=== PATIENT | female | born 1950 | race Caucasian/White ===

== ENCOUNTER 2019-12-08 08:33 | Outpatient (REF) | payer MEDICARE, OTHER, SELFPAY ==
[2019-12-08 09:41] LABS: MANUAL DIFF FLAG NO
[2019-12-08 09:53] LABS: Basophils Percent Auto 0.4 % (0-2); Eosinophils Absolute Auto 0.1 X10*3/uL (0.0-0.4); Eosinophils Percent Auto 1.6 % (0-4); Hematocrit 42.5 % (37-47); Hemoglobin 13.9 g/dl (12.0-16.0); Imm Gran Abs Auto 0.01 X10*3/uL (0.00-0.03); Imm Gran Pct Auto 0.2 % (0.0-0.4); Lymphocytes Absolute Auto 1.4 X10*3/uL (1.2-4.9); Lymphocytes Percent Auto 24.9 % (20-40); Mean Corpuscular HGB Conc 32.7 g/dl (31.0-35.0); Mean Corpuscular Hemoglobin 30.2 pg (27.0-33.0); Mean Corpuscular Volume 92.2 fL (80-98); Mean Platelet Volume 9.9 fL (9.4-12.3); Monocytes Absolute Auto 0.6 X10*3/uL (0.1-1.2); Neutrophils Absolute Auto 3.6 X10*3/uL (2.0-8.3); Neutrophils Percent Auto 62.9 % (45-73); Platelet Count 313 X10*3/uL (160-400); Red Blood Count 4.61 X10*6/uL (4.20-5.50); Red Cell Distribution Width 13.2 % (11.0-16.0); White Blood Count 5.7 X10*3/uL (4.8-10.8)
[2019-12-08 10:16] LABS: Glucose Urine UA NEG (NEG); Leukocyte Esterase Urine NEG (NEG); Nitrite Urine NEG (NEG); PH 7.5 (5.0-8.0); Specific Gravity - Urine 1.015 (1.005-1.025); Urine Blood TRACE (NEG); Urine Ketones NEG (NEG); Urine Protein NEG (NEG-TRACE)
[2019-12-08 10:18] LABS: Alanine Aminotransferase 22 U/L (0-31); Albumin Level 4.4 g/dL (3.5-5.0); Alkaline Phosphatase 68 U/L (39-117); Anion Gap 16 (12-20); Aspartate Amino Transferase 26 U/L (5-31); Bilirubin Total 0.5 mg/dL (0.0-1.0); Blood Urea Nitrogen 20 mg/dL (9-16); Calcium 9.2 mg/dL (8.4-10.2); Carbon Dioxide 26 mmol/L (22-29); Chloride 100 mmol/L (96-108); Cholesterol 253 mg/dL; Estimated Glomerular Filt Rate > 60; Glucose Random 84 mg/dL (60-115); HDL Cholesterol 98 mg/dL; LDL Cholesterol Calculated 136 mg/dl; Potassium 4.5 mmol/l (3.3-5.1); Sodium 137 mmol/L (135-145); Total Protein 7.5 g/dL (6.5-8.0); Triglycerides 96 mg/dL
[2019-12-08 10:21] LABS: Appearance Urine CLEAR; Color Urine YELLOW
[2019-12-08 11:16] LABS: RBC Urine 0-2 /HPF (0); Squamous Epithelial Cell Urine TRACE /LPF; WBC Urine 0-2 /HPF (0-4)
== END 2019-12-08 08:34 | disposition home or self-care (01) ==
LOC: HO.LAB 08:33
PROVIDERS: PCP Internal Medicine; Visit Provider Internal Medicine
DX: Z00.00 Encounter for general adult medical examination without abnormal findings (principal); I10 Essential (primary) hypertension
CPT/HCPCS: 36415; 80053; 80061; 81001; 81003; 85025

== ENCOUNTER 2019-12-31 09:27 | Outpatient (REF) | payer MEDICARE, OTHER, SELFPAY ==
[2019-12-31 11:30] LABS: Vitamin D 25-OH Total 41.8 ng/mL (>30)
== END 2019-12-31 09:28 | disposition home or self-care (01) ==
LOC: HO.LAB 09:27
PROVIDERS: PCP Internal Medicine; Visit Provider Internal Medicine
DX: E55.9 Vitamin D deficiency, unspecified (principal)
CPT/HCPCS: 82306

== ENCOUNTER 2020-09-02 12:57 | Outpatient (REF) | payer MEDICARE, OTHER, SELFPAY ==
--- NOTE | ~2020-09-02 | MM_ITS ---
EXAMINATION: MM SCREENING DIGITAL BREAST TOMOSYNTHESIS, BILATERAL CLINICAL INFORMATION: Screening. Asymptomatic. The lifetime risk of breast cancer based on the Tyrer-Cuzick Model is 6%. COMPARISON: Mammography: 08/29/2019, 08/23/2018, 08/17/2017, 08/03/2016 TECHNIQUE: Digital breast tomosynthesis is performed in both the craniocaudal and mediolateral oblique views along with computer-aided detection (CAD). Synthesized 2D images are generated from the tomosynthesis. FINDINGS: There are scattered areas of fibroglandular density (ACR BI-RADS breast composition Category b). Parenchymal pattern is similar to prior studies. There is no developing density or interval mass or architectural abnormality. No abnormal calcifications. The axilla and skin contours are unremarkable. MM/MM tomosynthesis screening BI IMPRESSION: No mammographic evidence of malignancy. ASSESSMENT: BI-RADS 1: Negative RECOMMENDATION: Routine annual mammography screening. This patient's information was entered into a reminder system with a target due date for their next mammogram.
== END 2020-09-02 12:58 | disposition home or self-care (01) ==
LOC: HO.MAMMO 12:57
PROVIDERS: Visit Provider Internal Medicine
DX: Z12.31 Encounter for screening mammogram for malignant neoplasm of breast (principal)
CPT/HCPCS: 77063; 77067

== ENCOUNTER 2020-12-31 10:42 | Outpatient (REF) | payer MEDICARE, OTHER, SELFPAY ==
--- NOTE | ~2020-12-31 | MM_ITS ---
EXAMINATION: BONE DENSITOMETRY CLINICAL INDICATION: Age-related osteoporosis without current pathological fracture. COMPARISON: Previous BD dated 10/10/2018 and baseline BD dated 10/05/2016. TECHNIQUE: Using a Strawberry energy DXA System (software version: 13.1) manufactured by [employer], dual-energy x-ray absorptiometry was performed of the lumbar spine and left hip. The images are of good technical quality. Summary results are attached. FINDINGS: AP SPINE L1-L3 (excluding L4): The data of L1-L4 has been changed to exclude the L4 vertebral body, because degenerative changes at this level may cause overestimation of lumbar spine density. Current: BMD 0.928 g/cm2, Z-score 0.0, T-score -2.0, osteopenia, 2.8% decrease from previous, 4.6% decrease from baseline (<5% change is not significant). Prior: BMD 0.955 g/cm2. Baseline: BMD 0.973 g/cm2. LEFT FEMUR, NECK: Current: BMD 0.603 g/cm2, Z-score -1.2, T-score -3.1, osteoporosis. Prior: BMD 0.664 g/cm2. Baseline: BMD 0.675 g/cm2. LEFT FEMUR, TOTAL: Current: BMD 0.603 g/cm2, Z-score -1.5, T-score -3.2, osteoporosis, 13.7% decrease from previous, 12.5% decrease from baseline (<5% change is not significant). Prior: BMD 0.699 g/cm2. Baseline: BMD 0.689 g/cm2. IDENTIFIED RISK FACTORS: Osteoporosis, menopause. HISTORY OF FRACTURE: None listed. MEDICATIONS: Calcium or multivitamin. MM/XR DEXA axial skeleton IMPRESSION: 1. DIAGNOSIS: Osteoporosis based on the lowest T-score value of -3.2 in the total femur applying World Health Organization criteria. 2. 10-YEAR FRACTURE RISK PREDICTION, FRAX: According to the guidelines, FRAX calculation should only be performed on patients in the osteopenia bone density category. 3. Treatment Recommendations: NOF guidelines recommend consideration for treatment in postmenopausal women and men age 50 and older presenting with the following: -A hip or vertebral (clinical or morphometric) fracture. -T-score less than or equal to -2.5 at the femoral neck or spine after appropriate evaluation to exclude secondary causes. -Low bone mass at the hip or spine and a 10-year fracture probability by FRAX of greater than or equal to 3% for hip fracture or greater than or equal to 20% for major osteoporotic fracture based on the [place] adapted WHO algorithm. 4. Other Recommendations: All treatment decisions require clinical judgment and consideration of individual patient factors, including patient preferences, comorbidities, previous drug use, risk factors not captured in the FRAX model (e.g. frailty, falls, vitamin D deficiency, increased bone turnover, interval significant decline in bone density) and possible under or overestimation of fracture risk by FRAX. Additional medical evaluation for secondary cause of low bone mineral density may be appropriate. FUTURE SCAN RECOMMENDATION: People with diagnosed cases of osteoporosis or at high risk for fracture should have regular bone mineral density tests. For patients eligible for Medicare, routine testing is allowed once every 2 years. The testing frequency can be increased to one year for patients who have rapidly progressing disease, those who are receiving or discontinuing medical therapy to restore bone mass, or have additional risk factors.
== END 2020-12-31 10:43 | disposition home or self-care (01) ==
LOC: HO.MAMMO 10:42
PROVIDERS: Visit Provider Internal Medicine
DX: Z13.820 Encounter for screening for osteoporosis (principal); M81.0 Age-related osteoporosis without current pathological fracture; Z78.0 Asymptomatic menopausal state; Z79.899 Other long term (current) drug therapy
CPT/HCPCS: 77080

== ENCOUNTER 2021-01-19 09:07 | Outpatient (REF) | payer MEDICARE, OTHER, SELFPAY ==
[2021-01-19 11:21] LABS: Alanine Aminotransferase 21 U/L (0-31); Albumin Level 4.1 g/dL (3.5-5.0); Alkaline Phosphatase 76 U/L (39-117); Anion Gap 13 (12-20); Aspartate Amino Transferase 23 U/L (5-31); Bilirubin Total 0.5 mg/dL (0.0-1.0); Blood Urea Nitrogen 27 mg/dL (9-16); Carbon Dioxide 28 mmol/L (22-29); Chloride 102 mmol/L (96-108); Estimated Glomerular Filt Rate > 60; Glucose Random 84 mg/dL (60-115); Phosphorus 3.9 mg/dL (2.7-4.5); Potassium 4.4 mmol/L (3.3-5.1); Sodium 139 mmol/L (135-145); Total Protein 7.4 g/dL (6.5-8.0)
[2021-01-19 11:41] LABS: Free T4 (Free Thyroxine) 1.03 ng/dL (0.71-1.85); Thyroid Stimulating Hormone 1.49 uIU/mL (0.32-4.0); Vitamin D 25-OH Total 38.9 ng/mL (>30)
[2021-01-20 10:21] LABS: Calcium (PTHI) 9.6 mg/dL (8.6-10.4); PTHI 22 pg/mL (14-64)
[2021-01-21 12:21] LABS: Prot Elec - Alpha1 0.3 g/dL (0.2-0.3); Prot Elec - Alpha2 0.9 g/dL (0.5-0.9); Prot Elec - Beta 1 0.5 g/dL (0.4-0.6); Prot Elec - Beta 2 0.5 g/dL (0.2-0.5); Prot Elec - Gamma 1.1 g/dL (0.8-1.7); Prot Elec - Total Protein 7.2 g/dL (6.1-8.1)
[2021-01-21 14:35] LABS: Calcium, Ionized 5.1 mg/dL (4.8-5.6)
== END 2021-01-19 09:08 | disposition home or self-care (01) ==
LOC: HO.LAB 09:07
PROVIDERS: PCP Internal Medicine; Visit Provider Internal Medicine
DX: M81.0 Age-related osteoporosis without current pathological fracture (principal); E55.9 Vitamin D deficiency, unspecified; E04.9 Nontoxic goiter, unspecified
CPT/HCPCS: 36415; 80053; 82306; 82330; 83970; 84075; 84100; 84165; 84439; 84443; 99212

== ENCOUNTER 2021-01-27 11:42 | Outpatient (REF) | payer MEDICARE, OTHER, SELFPAY ==
[2021-01-27 12:32] LABS: Total Volume 24 Hour Urine 2300 mL
[2021-01-27 12:38] LABS: Creatinine, 24Hr Urine 0.9 G/Day (1.0-2.0)
[2021-01-29 17:06] LABS: Calcium, 24 Hr Urine 186 mg/24 h; Calcium/Creatinine Ratio 208 mg/g creat (30-275)
== END 2021-01-27 11:43 | disposition home or self-care (01) ==
LOC: HO.LNP 11:42
PROVIDERS: Visit Provider Internal Medicine
DX: Z13.89 Encounter for screening for other disorder (principal)
CPT/HCPCS: 82340; 82570

== ENCOUNTER 2021-01-27 16:29 | Outpatient (REF) | payer MEDICARE, OTHER, SELFPAY ==
[2021-01-27 16:41] LABS: MANUAL DIFF FLAG NO
[2021-01-27 16:56] LABS: Basophils Percent Auto 0.4 % (0-2); Eosinophils Absolute Auto 0.1 X10*3/uL (0.0-0.4); Eosinophils Percent Auto 1.4 % (0-4); Hematocrit 40.6 % (37.0-47.0); Hemoglobin 13.1 g/dl (12.0-16.0); Imm Gran Abs Auto 0.02 X10*3/uL (0.00-0.03); Imm Gran Pct Auto 0.4 % (0.0-0.4); Lymphocytes Absolute Auto 1.4 X10*3/uL (1.2-4.9); Lymphocytes Percent Auto 25.4 % (20-40); Mean Corpuscular HGB Conc 32.3 g/dl (31.0-35.0); Mean Corpuscular Volume 92.9 fL (80.0-98.0); Mean Platelet Volume 9.1 fL (9.4-12.3); Monocytes Absolute Auto 0.5 X10*3/uL (0.1-1.2); Monocytes Percent Auto 9.5 % (2-11); Neutrophils Absolute Auto 3.6 x10*3/uL (2.0-8.3); Neutrophils Percent Auto 62.9 % (45-73); Platelet Count 315 X10*3/uL (160-400); Red Blood Count 4.37 X10*6/uL (4.20-5.50); Red Cell Distribution Width 13.5 % (11.0-16.0); White Blood Count 5.7 X10*3/uL (4.8-10.8)
[2021-01-27 17:12] LABS: Alanine Aminotransferase 20 U/L (0-31); Albumin Level 4.1 g/dL (3.5-5.0); Alkaline Phosphatase 84 U/L (39-117); Anion Gap 13 (12-20); Aspartate Amino Transferase 22 U/L (5-31); Bilirubin Total 0.2 mg/dL (0.0-1.0); Blood Urea Nitrogen 24 mg/dL (9-16); Calcium 9.5 mg/dL (8.4-10.2); Carbon Dioxide 29 mmol/L (22-29); Chloride 103 mmol/L (96-108); Estimated Glomerular Filt Rate > 60; Glucose Random 89 mg/dL (60-115); Potassium 4.5 mmol/L (3.3-5.1); Sodium 140 mmol/L (135-145); Total Protein 7.3 g/dL (6.5-8.0)
== END 2021-01-27 16:30 | disposition home or self-care (01) ==
LOC: HO.LAB 16:29
PROVIDERS: PCP Internal Medicine; Visit Provider Nurse Practitioner
DX: R19.5 Other fecal abnormalities (principal)
CPT/HCPCS: 36415; 80053; 82340; 82570; 85025; 99202

== ENCOUNTER 2021-02-09 09:02 | Outpatient (REF) | payer MEDICARE, OTHER, SELFPAY ==
[2021-02-09 09:27] LABS: MANUAL DIFF FLAG NO
[2021-02-09 09:46] LABS: Basophils Percent Auto 0.6 % (0-2); Eosinophils Absolute Auto 0.1 X10*3/uL (0.0-0.4); Eosinophils Percent Auto 1.8 % (0-4); Hematocrit 41.9 % (37.0-47.0); Hemoglobin 13.6 g/dl (12.0-16.0); Imm Gran Abs Auto 0.02 X10*3/uL (0.00-0.03); Imm Gran Pct Auto 0.4 % (0.0-0.4); Lymphocytes Absolute Auto 1.4 X10*3/uL (1.2-4.9); Mean Corpuscular HGB Conc 32.5 g/dl (31.0-35.0); Mean Corpuscular Hemoglobin 29.8 pg (27.0-33.0); Mean Corpuscular Volume 91.9 fL (80.0-98.0); Mean Platelet Volume 8.9 fL (9.4-12.3); Monocytes Absolute Auto 0.5 X10*3/uL (0.1-1.2); Monocytes Percent Auto 10.7 % (2-11); Neutrophils Absolute Auto 2.9 x10*3/uL (2.0-8.3); Neutrophils Percent Auto 57.5 % (45-73); Platelet Count 334 X10*3/uL (160-400); Red Blood Count 4.56 X10*6/uL (4.20-5.50); Red Cell Distribution Width 13.4 % (11.0-16.0)
[2021-02-09 10:05] LABS: Alanine Aminotransferase 24 U/L (0-31); Albumin Level 4.4 g/dL (3.5-5.0); Alkaline Phosphatase 79 U/L (39-117); Anion Gap 13 (12-20); Aspartate Amino Transferase 23 U/L (5-31); Bilirubin Total 0.5 mg/dL (0.0-1.0); Blood Urea Nitrogen 22 mg/dL (9-16); Carbon Dioxide 29 mmol/L (22-29); Chloride 101 mmol/L (96-108); Cholesterol 250 mg/dL; Estimated Glomerular Filt Rate > 60; Glucose Fasting 85 mg/dL (60-99); HDL Cholesterol 91 mg/dL; LDL Cholesterol Calculated 143 mg/dl; Sodium 139 mmol/L (135-145); Total Protein 7.7 g/dL (6.5-8.0); Triglycerides 82 mg/dL
[2021-02-09 10:27] LABS: Vitamin D 25-OH Total 39.4 ng/mL (>30)
[2021-02-09 10:58] LABS: Appearance Urine CLEAR; Color Urine YELLOW; Glucose Urine UA NEG (NEG); Leukocyte Esterase Urine 1+ (NEG); Nitrite Urine NEG (NEG); Urine Blood TRACE (NEG); Urine Ketones NEG (NEG); Urine Protein NEG (NEG-TRACE)
[2021-02-09 11:06] LABS: RBC Urine 0-2 /HPF (0)
== END 2021-02-09 09:03 | disposition home or self-care (01) ==
LOC: HO.LAB 09:02
PROVIDERS: PCP Internal Medicine; Visit Provider Internal Medicine
DX: I10 Essential (primary) hypertension (principal); E55.9 Vitamin D deficiency, unspecified
CPT/HCPCS: 36415; 80053; 80061; 81001; 82306; 85025

== ENCOUNTER 2021-03-15 12:04 | Outpatient (REF) | payer MEDICARE, OTHER, SELFPAY ==
--- NOTE | ~2021-03-15 | US_ITS ---
EXAMINATION: US THYROID CLINICAL INFORMATION: Nontoxic goiter, unspecified COMPARISON: None TECHNIQUE: Linear transducer ram-scale and color Doppler examination with attention to the region of the thyroid. FINDINGS: SIZE: Measurements of the thyroid lobes and nodules are given in sagittal, anteroposterior and transverse dimensions respectively. Right Thyroid Lobe: 4.9 x 0.8 x 2.3 cm, volume 4.7 mL. Parenchyma: The gland echotexture is homogeneous. Thyroid vascularity is normal. Left Thyroid Lobe: 4.5 x 1.1 x 1.8 cm, volume 4.7 mL. Parenchyma: The gland echotexture is homogeneous. Thyroid vascularity is normal. Isthmus: 0.22 cm in maximum AP dimension. Estimated total number of nodules greater than or equal to 1 cm: 0. Manufacturing Worker nodules are described as follows: 1. Location: Right mid. Size: 0.29 x 0.16 x 0.23 cm, volume 0.006 mL. Nodule characteristics: Composition: Solid/almost completely solid (2). Echogenicity: Hypoechoic (2). Shape: Not taller than wide (0). Margins: Smooth (0). Echogenic Foci: None (0). ACR TI-RADS total points: 4 ACR TI-RADS category: 4 2. Location: Isthmus. Size: 0.23 x 0.19 x 0.21 cm, volume 0.005 mL. Nodule characteristics: Composition: Solid/almost completely solid (2). Echogenicity: Hypoechoic (2). Shape: Not taller than wide (0). Margins: Smooth (0). Echogenic Foci: None (0). ACR TI-RADS total points: 4 ACR TI-RADS category: 4 NODES: No lymphadenopathy is seen in the tissue surrounding the thyroid gland. US/US thyroid IMPRESSION: Normal size thyroid gland. Small bilateral thyroid nodules. ACR TI-RADS RECOMMENDATION REFERENCE: Ultrasound-guided fine-needle aspiration, followup ultrasound, no further follow up. * TR1 (0 point) and TR 2 (2 points): No FNA or follow up * TR3 (3 points): FNA if more than or equal to 2.5 cm in maximum dimension, followup ultrasound in 1, 3 and 5 years if 1.5 to 2.4 cm in maximum dimension. * TR4 (4-6 points): FNA if more than or equal to 1.5 cm in maximum dimension, followup ultrasound in 1, 2, 3 and 5 years if 1 to 1.4 cm in maximum dimension. * TR5 (more than or equal to 7 points): FNA if more than or equal to 1 cm in maximum dimension, followup ultrasound every year for 5 years if 0.5 to 0.9 cm in maximum dimension. * TR3, TR4 or TR5 nodules that are below the size threshold for follow up receive no follow up.
== END 2021-03-15 12:05 | disposition home or self-care (01) ==
LOC: HO.US 12:04
PROVIDERS: PCP Internal Medicine; Visit Provider Internal Medicine
DX: E04.9 Nontoxic goiter, unspecified (principal)
CPT/HCPCS: 76536

== ENCOUNTER 2021-04-12 08:59 | Day surgery (SDC) | payer MEDICARE, OTHER, SELFPAY ==
[2021-04-05 19:11] VITALS: BMI 20.5
--- NOTE | 2021-04-11 12:10 | HO.ANESPROP2 ---
HPI - Anesthesia Eval Consult details Narrative: 70yo F for Colonoscopy PMFSH Active Problems Active Problems: All Active Problems (Updated 01/27/21 @ 16:27 by ANAI Parikh) Positive colorectal cancer screening using Cologuard test (Acute) Irritable bowel syndrome with diarrhea (Acute) Nephrolithiasis (Acute) Hypertension (Acute) Goiter (Acute) Vitamin D deficiency (Acute) Osteoporosis (Acute) Past Medical History Medical History Goiter Osteoporosis Vitamin D deficiency Family History Family History Father Stomach cancer Mother Breast cancer Surgical History Surgical History Hx of section Hx of colonoscopy Social History Social History Alcohol intake: never Patient Tobacco Use Status: Never used Tobacco Meds Allergies Allergy/AdvReac Type Severity Reaction Status Date / Time No Known Allergies Allergy Verified 01/27/21 15:46 Home Medications Medication Instructions Recorded Confirmed Last Taken Type calcium citrate 200 mg (950 mg) 200 mg PO DAILY 01/19/21 04/05/21 Unknown History tablet Exam Exam Date and Time: April 11, 2021 1210 Height,Weight and Vital Signs: Height 5 ft 4 in Weight 54.431 kg Pertinent Lab Results Pertinent Lab Results: Laboratory Tests 02/09/21 02/09/21 09:26 09:26 WBC 5.0 Hgb 13.6 Hct 41.9 Plt Count 334 Sodium 139 Potassium 4.0 Chloride 101 Carbon Dioxide 29 BUN 22 H Creatinine 0.81 Assessment and Plan Assessment Anesthesia Assessment: Chart Reviewed
[2021-04-12 09:16] VITALS: BP 164/89; PULSE 93; RESP 17; TEMP 36.5; O2SAT 100; BMI 20.7
[2021-04-12] MEDS: Lactated Ringers 1,000 ML 100 ML IVCONT (09:44)
--- NOTE | 2021-04-12 10:06 | MHC.SHP ---
Pre-Procedural Eval Section A Date of Service: 04/12/21 The patient is an INPATIENT: No The History & Physical has been completed within 30 days and I have reviewed it.: No Section B Chief Complaint: Other fecal abnormalities Details of Present Illness: Colon cancer screening, positive Cologuard test Relevant Family History (Specify if Yes): Yes Relevant Social History: None Present Medications: see Short Stay Collaborative assessment Medical History: Significant History (Goiter Osteoporosis Vitamin D deficiency) History of Previous Operations: Relevant previous surgery/procedure and date(s) (History of colonoscopy, status post ) Allergies: Allergies Allergy/AdvReac Type Severity Reaction Status Date / Time No Known Allergies Allergy Verified 01/27/21 15:46 Review of Systems Sugical H&P ROS: Negative: Constitution, Cardiovascular, Respiratory and Gastrointestinal Exam Surgical H&P Exam: Normal: Heart, Normal: Lungs, Normal: Extremities and Normal: Abdomen Plan Diagnosis/Plan: Unchanged I have reviewed the history and physical and performed a pertinent physical examination on my patient. No changes have occurred unless specified.
--- NOTE | 2021-04-12 10:07 | P.OP_ITS ---
Operative Note Operative Note Date of Service: 04/12/21 Narrative: Pre-op diagnosis: Colon cancer screening, positive Cologuard test Post-op diagnosis:?other (Colon polyps, diverticulosis) Procedure: COLONOSCOPY TILL CECUM WITH BIOPSIES, SNARE POLYPECTOMY, SUBMUCOSAL INJECTION Consent: Indications for the procedure and potential complications of bleeding, perforation, reaction to medications and missed diagnosis were discussed with the patient and informed consent was obtained. Instrument: Olympus PCF H 190 L variable stiffness pediatric colonoscope Monitoring: Vital signs and clinical assessment, intermittent blood pressure monitoring, continuous EKG monitoring, Pulse oximetry and Carbon Dioxide monitoring were done throughout the procedure. Colon withdrawl time was 25 minutes. Procedure: The patient was placed in the left lateral decubitis position and pre-procedure medications were administered. After a digital rectal examination of the ano-rectum, the video colonoscope was inserted into the rectum and advanced through the colon to the cecum. The colonoscope was slowly withdrawn in a retrograde panoramic fashion and the colon mucosa was carefully examined including a retroflexed view of the rectum. Findings and interventions are described below. Procedure Difficulty:? Colon was long and tortuous and there was some loop formation Findings: Terminal Ileum: Not evaluated Cecum:? Normal Ascending Colon:? A 5-6 mm sessile polyp in the distal ascending colon removed with a cold biopsy Transverse Colon:? A 2.5 cms flat polyp at 65 cm raised with 3 cc of Orise solution and removed with a hot snare.? Polypectomy site was marked with Sarina ink.? A 12-15 mm flat polyp in the distal transverse colon raised with 2 cc of Orise solution and removed with a hot snare. Descending Colon:? Normal Sigmoid Colon:? A 4-5 mm diminutive appearing polyp removed with the cold biopsy.? Moderate diverticulosis Rectum:? Normal Ano-rectum:? Normal Colon preparation: Excellent ? Impression and Post Procedure Diagnosis: Colonoscopy Findings: Two small and two medium to large sized polyps removed Moderate diverticulosis seen in the sigmoid colon Moderate hemorrhoids on retroflexed exam. Plan: Await pathology results Patient has an appointment on 04/26/21 in the GI Clinic with ESTUARDO Doe . Repeat Colonoscopy interval based on path results - in 1 year if polyps are adenomatous (to check polypectomy site at 65 cms) and 10 years if polyps are hyperplastic. Above findings were reviewed with the patient and [colon polyps] and [diverticulosis] handouts were given in the discharge area Surgeon: Jaki Carson MD Anesthesia:?MAC (Dr Gamino) Was an Hedge Fund Accountant used for this Procedure?:?Yes Hedge Fund Accountant:?Thuy De Anda Estimated blood loss (mL):?0 Pathology:?other (A. ascending colon polyp? B. transv erse colon polyp at 65 cm with Orise? C. distal transverse colon polyp with Orise? D. sigmoid colon polyp) Condition:?stable Disposition:?PACU
[2021-04-12 11:10] VITALS: BP 154/56; PULSE 84; RESP 20; TEMP 36.7; O2SAT 98
== END 2021-04-12 11:27 | disposition home or self-care (01) ==
PROVIDERS: PCP Internal Medicine; Visit Provider Internal Medicine Gastroenterology
PROC: 0DJD8ZZ Inspection of Lower Intestinal Tract, Via Natural or Artificial Opening Endoscopic (ICD-10-PCS; CPT 45378; principal; 2021-04-12 10:10)
DX: R19.5 Other fecal abnormalities (principal); D12.2 Benign neoplasm of ascending colon; D12.3 Benign neoplasm of transverse colon; K63.5 Polyp of colon; K57.30 Diverticulosis of large intestine without perforation or abscess without bleeding; Z80.0 Family history of malignant neoplasm of digestive organs; E55.9 Vitamin D deficiency, unspecified; M81.0 Age-related osteoporosis without current pathological fracture
CPT/HCPCS: 45385; 45380; 45381; 88305

== ENCOUNTER → 2021-04-26 10:57 | Outpatient (BNVA) | payer MEDICARE, OTHER, SELFPAY | PROVIDERS: PCP Internal Medicine; Visit Provider Physician Assistant | DX: D12.6 Benign neoplasm of colon, unspecified (principal) | CPT/HCPCS: 99212 ==

== ENCOUNTER → 2021-07-18 09:57 | Outpatient (BNVA) | payer MEDICARE, OTHER, SELFPAY | PROVIDERS: PCP Internal Medicine; Visit Provider Internal Medicine | DX: M81.0 Age-related osteoporosis without current pathological fracture (principal); E55.9 Vitamin D deficiency, unspecified; E04.9 Nontoxic goiter, unspecified | CPT/HCPCS: Q3014 ==

== ENCOUNTER 2021-09-08 15:02 | Outpatient (REF) | payer MEDICARE, OTHER, SELFPAY ==
--- NOTE | ~2021-09-08 | MM_ITS ---
EXAMINATION: MM SCREENING DIGITAL BREAST TOMOSYNTHESIS, BILATERAL CLINICAL INFORMATION: Screening. Asymptomatic. The lifetime risk of breast cancer based on the Tyrer-Cuzick Model is 6%. COMPARISON: Mammography: 09/02/2020, 08/29/2019, 08/23/2018 TECHNIQUE: Digital breast tomosynthesis is performed in both the craniocaudal and mediolateral oblique views along with computer-aided detection (CAD). Synthesized 2D images are generated from the tomosynthesis. FINDINGS: There are scattered areas of fibroglandular density (ACR BI-RADS breast composition Category b). There are no significant masses, abnormal calcifications, or other abnormalities. Parenchymal pattern is similar to prior studies. The axilla and skin contours are unremarkable. MM/MM tomosynthesis screening BI IMPRESSION: There are no significant changes from prior study. ASSESSMENT: BI-RADS 1: Negative RECOMMENDATION: Routine annual mammography screening. This patient's information was entered into a reminder system with a target due date for their next mammogram.
== END 2021-09-08 15:03 | disposition home or self-care (01) ==
LOC: HO.MAMMO 15:02
PROVIDERS: PCP Internal Medicine; Visit Provider Internal Medicine
DX: Z12.31 Encounter for screening mammogram for malignant neoplasm of breast (principal)
CPT/HCPCS: 77063; 77067

== ENCOUNTER 2022-02-14 08:24 | Outpatient (REF) | payer MEDICARE, OTHER, SELFPAY ==
[2022-02-14 08:40] LABS: MANUAL DIFF FLAG NO
[2022-02-14 08:54] LABS: Basophils Percent Auto 0.5 % (0-2); Eosinophils Absolute Auto 0.1 X10*3/uL (0.0-0.4); Eosinophils Percent Auto 1.3 % (0-4); Hematocrit 40.7 % (37.0-47.0); Hemoglobin 13.3 g/dl (12.0-16.0); Imm Gran Abs Auto 0.02 X10*3/uL (0.00-0.03); Imm Gran Pct Auto 0.3 % (0.0-0.4); Lymphocytes Absolute Auto 1.2 X10*3/uL (1.2-4.9); Lymphocytes Percent Auto 18.7 % (20-40); Mean Corpuscular HGB Conc 32.7 g/dl (31.0-35.0); Mean Corpuscular Hemoglobin 29.7 pg (27.0-33.0); Mean Corpuscular Volume 90.8 fL (80.0-98.0); Mean Platelet Volume 9.1 fL (9.4-12.3); Monocytes Absolute Auto 0.5 X10*3/uL (0.1-1.2); Neutrophils Absolute Auto 4.4 x10*3/uL (2.0-8.3); Neutrophils Percent Auto 71.2 % (45-73); Platelet Count 315 X10*3/uL (160-400); Red Blood Count 4.48 X10*6/uL (4.20-5.50); Red Cell Distribution Width 13.3 % (11.0-16.0); White Blood Count 6.2 X10*3/uL (4.8-10.8)
[2022-02-14 09:28] LABS: Alanine Aminotransferase 21 U/L (0-31); Albumin Level 4.2 g/dL (3.5-5.0); Alkaline Phosphatase 67 U/L (39-117); Anion Gap 11 (12-20); Aspartate Amino Transferase 25 U/L (5-31); Bilirubin Total 0.5 mg/dL (0.0-1.0); Blood Urea Nitrogen 20 mg/dL (9-16); Calcium 9.6 mg/dL (8.4-10.2); Carbon Dioxide 29 mmol/L (22-29); Chloride 104 mmol/L (96-108); Cholesterol 219 mg/dL; Estimated Glomerular Filt Rate > 60; Glucose Random 84 mg/dL (60-115); HDL Cholesterol 80 mg/dL; LDL Cholesterol Calculated 126 mg/dl; Sodium 140 mmol/L (135-145); Triglycerides 68 mg/dL
[2022-02-14 09:45] LABS: TSH reflex Free T4 1.46 uIU/mL (0.32-4.0); Vitamin D 25-OH Total 50.1 ng/mL (>30)
[2022-02-14 09:47] LABS: Appearance Urine Clear; Color Urine Yellow; Glucose Urine UA Negative (Negative); Leukocyte Esterase Urine Trace (Negative); Nitrite Urine Negative (Negative); PH 5.5 (5.0-9.0); Specific Gravity - Urine 1.015 (1.005-1.025); UMIC TRIGGER UA YES; Urine Blood Small (1+) (Negative); Urine Ketones Negative (Negative); Urine Protein Negative (Neg-Trace)
[2022-02-14 10:01] LABS: Bacteria Urine None Seen (None Seen); Hyaline Casts Urine 0-2 /LPF (0-2); RBC Urine 0-2 /HPF (0-2); Squamous Epithelial Cell Urine 0-2 /HPF (0-2); WBC Urine 0-5 /HPF (0-5)
== END 2022-02-14 08:25 | disposition home or self-care (01) ==
LOC: HO.LAB 08:24
PROVIDERS: PCP Internal Medicine; Visit Provider Internal Medicine
DX: I10 Essential (primary) hypertension (principal); E04.1 Nontoxic single thyroid nodule; E55.9 Vitamin D deficiency, unspecified; D12.6 Benign neoplasm of colon, unspecified
CPT/HCPCS: 36415; 80053; 80061; 81001; 82306; 84443; 85025; 99212

== ENCOUNTER 2022-07-19 12:23 | Outpatient (REF) | payer MEDICARE, OTHER, SELFPAY ==
--- NOTE | ~2022-07-19 | US_ITS ---
EXAMINATION: US THYROID CLINICAL INFORMATION: Nontoxic single thyroid nodule. COMPARISON: Ultrasound soft tissue head/neck thyroid dated 03/15/2021. TECHNIQUE: Linear transducer grayscale and color Doppler examination with attention to the region of the thyroid. FINDINGS: SIZE: Measurements of the thyroid lobes and nodules are given in sagittal, anteroposterior and transverse dimensions respectively. Right Thyroid Lobe: 5.4 x 1.5 x 1.8 cm, volume 7.5 mL. Previously 4.9 x 0.8 x 2.3 cm, volume 4.7 mL. Parenchyma: The gland echotexture is homogeneous. Thyroid vascularity is normal. Left Thyroid Lobe: 5.4 x 1.9 x 1.6 cm, volume 8.6 mL. Previously 4.5 x 1.1 x 1.8 cm, volume 4.7 mL. Parenchyma: The gland echotexture is homogeneous. Thyroid vascularity is normal. Isthmus: 0.2 cm in maximum AP dimension. Previously 0.2 cm. Estimated total number of nodules greater than or equal to 1 cm: 0. Gas Charger nodules are described as follows: 1. Location: Right mid. Size: 0.3 x 0.2 x 0.3 cm, volume 0.1 mL. Previously: 0.3 x 0.2 x 0.2 cm, volume 0.1 mL. Nodule characteristics: Composition: Cystic(0). ACR TI-RADS total points: 0 ACR TI-RADS category: 1 2. Location: Right inferior. Size: 0.3 x 0.2 x 0.3 cm, volume 0.1 mL. Previously: Not documented on the prior study. Nodule characteristics: Composition: Mixed cystic and solid (1). Echogenicity: Isoechoic (1). Shape: Not taller than wide (0). Margins: Ill-defined (0). Echogenic Foci: None (0). ACR TI-RADS total points: 2 ACR TI-RADS category: 2 3. Location: Left inferior. Size: 0.3 x 0.2 x 0.2 cm, volume 0.1 mL. Previously: Not documented on the prior study. Nodule characteristics: Composition: Mixed cystic and solid (1). Echogenicity: Hypoechoic (2). Shape: Not taller than wide (0). Margins: Ill-defined (0). Echogenic Foci: None (0). ACR TI-RADS total points: 3 ACR TI-RADS category: 3 NODES: No lymphadenopathy is seen in the tissue surrounding the thyroid gland. US/US thyroid IMPRESSION: Sub-5 mm thyroid nodules which not warrant follow-up imaging. ACR TI-RADS RECOMMENDATION REFERENCE: Ultrasound-guided fine-needle aspiration, followup ultrasound, no further follow up. * TR1 (0 point) and TR2 (2 points): No FNA or follow up * TR3 (3 points): FNA if more than or equal to 2.5 cm in maximum dimension, followup ultrasound in 1, 3 and 5 years if 1.5 to 2.4 cm in maximum dimension. * TR4 (4-6 points): FNA if more than or equal to 1.5 cm in maximum dimension, followup ultrasound in 1, 2, 3 and 5 years if 1 to 1.4 cm in maximum dimension. * TR5 (more than or equal to 7 points): FNA if more than or equal to 1 cm in maximum dimension, followup ultrasound every year for 5 years if 0.5 to 0.9 cm in maximum dimension. * TR3, TR4 or TR5 nodules that are below the size threshold for follow up receive no follow up.
== END 2022-07-19 12:24 | disposition home or self-care (01) ==
LOC: HO.US 12:23
PROVIDERS: PCP Internal Medicine; Visit Provider Internal Medicine
DX: E04.1 Nontoxic single thyroid nodule (principal)
CPT/HCPCS: 76536

== ENCOUNTER → 2022-09-04 06:47 | Day surgery (SDC) | payer MEDICARE, OTHER, SELFPAY ==
[2022-08-31 11:32] VITALS: BMI 20.6
--- NOTE | 2022-09-01 13:34 | P.CONAN_ITS ---
Documented by User: Dee Augustin NP 09/01/22 13:37 HPI - Anesthesia Eval Consult details Narrative: 72yo F for Colonoscopy PMFSH Active Problems Active Problems: All Active Problems (Updated 02/14/22 @ 12:09 by Angie Garcia PA-C) Adenomatous colon polyp (Acute) Positive colorectal cancer screening using Cologuard test (Acute) Irritable bowel syndrome with diarrhea (Acute) Nephrolithiasis (Acute) Hypertension (Acute) Goiter (Acute) Vitamin D deficiency (Acute) Osteoporosis (Acute) Past Medical History Medical History Goiter Osteoporosis Vitamin D deficiency Family History Family History Father Stomach cancer Mother Breast cancer Surgical History Surgical History Hx of section Hx of colonoscopy Social History Social History Household Members Other:: Alcohol intake: never Patient Tobacco Use Status: Never used Tobacco Use of substances other than those prescribed or required for medical reasons: No Are you DNR?: No Advance Directives: No Advance Directives Information Provided: Yes Nutrition Risks: No Nutritional Risk Meds Allergies Allergy/AdvReac Type Severity Reaction Status Date / Time No Known Allergies Allergy Verified 02/14/22 10:57 Home Medications Medication Instructions Recorded Confirmed Last Taken Type calcium citrate 200 mg (950 mg) 200 mg PO DAILY 01/19/21 07/18/21 Unknown History tablet Exam Exam Date and Time: September 01, 2022 1334 Height,Weight and Vital Signs: Height 5 ft 4 in Weight 54.431 kg Pertinent Lab Results Pertinent Lab Results: Laboratory Tests 02/14/22 02/14/22 08:38 08:38 WBC 6.2 Hgb 13.3 Hct 40.7 Plt Count 315 Sodium 140 Potassium 4.0 Chloride 104 Carbon Dioxide 29 BUN 20 H Creatinine 0.81 Assessment and Plan Assessment Anesthesia Assessment: Chart Reviewed Documented by User: Martha Sharp MD 09/04/22 07:56 PMF Past Medical History Medical History Goiter Osteoporosis Vitamin D deficiency Family History Family History Father Stomach cancer Mother Breast cancer Family history of problems with anesthesia: No Surgical History Surgical History Hx of section Hx of colonoscopy History of Problems with Anesthesia: No Social History Social History Household Members Other:: Alcohol intake: never Patient Tobacco Use Status: Never used Tobacco Use of substances other than those prescribed or required for medical reasons: No Are you DNR?: No Advance Directives: No Advance Directives Information Provided: Yes Nutrition Risks: No Nutritional Risk Meds Allergies Allergy/AdvReac Type Severity Reaction Status Date / Time No Known Allergies Allergy Verified 02/14/22 10:57 Home Medications Medication Instructions Recorded Confirmed Last Taken Type calcium citrate 200 mg (950 mg) 200 mg PO DAILY 01/19/21 07/18/21 Unknown History tablet Exam Airway Mallampati Class: I TM Dist: >3cm Neck ROM: Full Heart: rr Lungs: cta Assessment and Plan Final Anesthetic Review Family History of Problems with Anesthesia: No History of Problems with Anesthesia: No NPO: Yes ASA Class: II Final Preanesthetic Review: No Changes in Pt Med Stat, Meds/Allgs Chart Re viewed, Consent Obtained/Reviewed and Anes Risks/Benef Reviewed Patient Risk: Low Procedure Risk: Low Anesthetic Plan Anesthetic Plan: MAC: Disposition: Standard PACU
[2022-09-04 07:04] VITALS: BP 165/68; PULSE 78; RESP 16; TEMP 37; O2SAT 98
--- NOTE | 2022-09-04 07:50 | MHC.SHP ---
Pre-Procedural Eval Section A Date of Service: 09/04/22 The patient is an INPATIENT: No The History & Physical has been completed within 30 days and I have reviewed it.: No Section B Chief Complaint: Screening, history of colon polyps Relevant Family History (Specify if Yes): Yes Relevant Social History: None Present Medications: see Short Stay Collaborative assessment Medical History: Significant History (Goiter Osteoporosis Vitamin D deficiency) History of Previous Operations: Relevant previous surgery/procedure and date(s) (Hx of section Hx of colonoscopy) Allergies: Allergies Allergy/AdvReac Type Severity Reaction Status Date / Time No Known Allergies Allergy Verified 02/14/22 10:57 Review of Systems Sugical H&P ROS: Negative: Constitution, Cardiovascular, Respiratory and Gastrointestinal Exam Surgical H&P Exam: Normal: Heart, Normal: Lungs, Normal: Extremities and Normal: Abdomen Plan Diagnosis/Plan: Unchanged I have reviewed the history and physical and performed a pertinent physical examination on my patient. No changes have occurred unless specified. Time Spent With Patient Time: Total time managing care of this patient today ____ minutes.
--- NOTE | 2022-09-04 08:25 | W.PM.OPN ---
Operative Note Operative Note Date of Service: 09/04/22 Narrative: COLONOSCOPY TILL CECUM WITH SNARE POLYPECTOMY, SUBMUCOSAL INJECTION AND HEMOCLIP PLACEMENT Pre-op diagnosis: Colon cancer screening, hx of colon polyps Post-op diagnosis:? colon polyps, diverticulosis, hemorrhoids Endoscopist:? Jaki Carson MD Anesthesia:?MAC Consent: Indications for the procedure and potential complications of bleeding, perforation and missed diagnosis were discussed with the patient and informed consent was obtained. Pt elected to have the procedure performed without sedation or anesthesia. Instrument: Olympus PCF H 190 L variable stiffness pediatric colonoscope Monitoring: Vital signs and clinical assessment, intermittent blood pressure monitoring, continuous EKG monitoring, Pulse oximetry and Carbon Dioxide monitoring were done throughout the procedure. Please see anesthesia flowsheet. Colon withdrawl time was 22 minutes. Procedure: The patient was placed in the left lateral decubitis position. After a digital rectal examination of the ano-rectum, the video colonoscope was inserted into the rectum and advanced through the colon to the cecum. The colonoscope was slowly withdrawn in a retrograde panoramic fashion and the colon mucosa was carefully examined including a retroflexed view of the rectum. Findings and interventions are described below. Procedure Difficulty: colon was long and tortuous and there was some loop formation Findings: Terminal Ileum: Not evaluated Cecum: A 1.5 cms flat polyp in the cecum. Polyp was raised with 5 cc of [place] and removed with a hot snare. polypectomy site was closed with 1 hemoclip Ascending Colon: Past polypectomy site at 65 cms was examined and no recurrent/residual polyp seen. Transverse Colon: Normal Descending Colon: Normal Sigmoid Colon: Moderate diverticulosis Rectum: Normal Ano-rectum: Small internal hemorrhoids and perianal skin tags. Colon preparation: Excellent Impression and Post Procedure Diagnosis: Colonoscopy Findings: One medium sized polyp removed Past polypectomy site at 65 cms was examined and no recurrent/residual polyp seen. Moderate diverticulosis seen in the sigmoid colon Small hemorrhoids on retroflexed exam. Plan: Await pathology results Patient has an appointment on 09/19/22 in the GI Clinic with ESTUARDO Doe. Repeat Colonoscopy interval based on path results - in 2 years if polyps are adenomatous and 5 years if polyps are hyperplastic (due to a hx of adenomatous colon polyps). Above findings were reviewed with the patient and colon polyps handout was given in the discharge area
[2022-09-04 08:32] VITALS: BP 168/72; PULSE 84; RESP 20; O2SAT 99
[2022-09-04 09:12] VITALS: BP 148/61; PULSE 84; RESP 18; TEMP 36.3; O2SAT 99
[2022-09-04 09:16] VITALS: BP 161/66; PULSE 69; RESP 16; O2SAT 99
== END | disposition home or self-care (01) ==
PROVIDERS: PCP Internal Medicine; Visit Provider Internal Medicine Gastroenterology
PROC: 0DJD8ZZ Inspection of Lower Intestinal Tract, Via Natural or Artificial Opening Endoscopic (ICD-10-PCS; CPT 45378; principal; 2022-09-04 08:30)
DX: D12.0 Benign neoplasm of cecum (principal); K57.30 Diverticulosis of large intestine without perforation or abscess without bleeding; K64.8 Other hemorrhoids; K64.4 Residual hemorrhoidal skin tags; R19.5 Other fecal abnormalities; K58.9 Irritable bowel syndrome, unspecified; E04.9 Nontoxic goiter, unspecified; I10 Essential (primary) hypertension; Z86.010 Personal history of colon polyps
CPT/HCPCS: 45385; 88305

== ENCOUNTER → 2022-09-04 06:47 | Outpatient (BNV) | payer MEDICARE, OTHER, SELFPAY | PROVIDERS: PCP Internal Medicine; Visit Provider Internal Medicine Gastroenterology | DX: Z12.11 Encounter for screening for malignant neoplasm of colon (principal); Z86.010 Personal history of colon polyps; K63.5 Polyp of colon; K57.30 Diverticulosis of large intestine without perforation or abscess without bleeding | CPT/HCPCS: 45381; 45385 ==

== ENCOUNTER 2022-09-14 14:57 | Outpatient (REF) | payer MEDICARE, OTHER, SELFPAY ==
--- NOTE | ~2022-09-14 | MM_ITS ---
EXAMINATION: MM SCREENING DIGITAL BREAST TOMOSYNTHESIS, BILATERAL CLINICAL INFORMATION: Screening. Asymptomatic. The lifetime risk of breast cancer based on the Tyrer-Cuzick Model is 5.6%. COMPARISON: Mammography: This study is compared with prior exams dating back to 2019. TECHNIQUE: Digital breast tomosynthesis is performed in both the craniocaudal and mediolateral oblique views along with computer-aided detection (CAD). Synthesized 2D images are generated from the tomosynthesis. FINDINGS: There are scattered areas of fibroglandular density (ACR BI-RADS breast composition Category b). There are no significant masses, abnormal calcifications, or other abnormalities. MM/MM tomosynthesis screening BI IMPRESSION: No mammographic evidence of malignancy. ASSESSMENT: BI-RADS BI-RADS 1 - Negative RECOMMENDATION: Routine annual mammography screening. 1 year F/U This examination should not preclude the clinical evaluation of a suspicious palpable abnormality. This patient's information was entered into a reminder system with a target due date for their next mammogram.
== END 2022-09-14 14:58 | disposition home or self-care (01) ==
LOC: HO.MAMMO 14:57
PROVIDERS: PCP Internal Medicine; Visit Provider Internal Medicine
DX: Z12.31 Encounter for screening mammogram for malignant neoplasm of breast (principal)
CPT/HCPCS: 77063; 77067

== ENCOUNTER → 2022-09-14 15:15 | Outpatient (BNV) | payer MEDICARE, OTHER, SELFPAY | PROVIDERS: PCP Internal Medicine; Visit Provider Radiology Diagnostic Radiology | DX: Z12.31 Encounter for screening mammogram for malignant neoplasm of breast (principal) | CPT/HCPCS: 77063; 77067 ==

== ENCOUNTER 2022-09-19 09:48 | Outpatient (AMB) | payer MEDICARE, OTHER, SELFPAY ==
[2022-09-19 09:51] VITALS: BP 126/76; PULSE 74; BMI 23.4
--- NOTE | 2022-09-19 09:51 | MHC.OFFVIS ---
Intake Vital Signs 09/19/22 09:51 Height 5 ft Weight 120 lb BMI 23.4 BP 126/76 Blood Pressure Location Lt brachial Position Sitting Pulse 74 Intake Visit Reasons: S/p colo- Alli Intake Note: Patient follow up Colonoscopy results. Patient denies any GI issues. 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 Normal bowel pattern She has a good appetite She has disabled so she has full responsibility of household [facility] Medical History (Updated 09/19/22 @ 11:09 by Angie Garcia PA-C) Goiter Osteoporosis Vitamin D deficiency Surgical History Hx of section Hx of colonoscopy Family History Father Stomach cancer Mother Breast cancer Social History Household Members Other:: Alcohol intake: never Patient Tobacco Use Status: Never used Tobacco Review of Systems Const All systems reviewed & are unremarkable except as noted in HPI and below Card Denies chest pain and Denies dyspnea Resp Denies dyspnea GI Denies abdominal pain, Denies change in bowel habits, Denies heartburn, Denies diarrhea and Denies nausea Psych Reports anxiety Physical Exam Vital Signs: Last Vital Signs Pulse 74 09/19/22 09:51 BP 126/76 09/19/22 09:51 BMI result Body Mass Index 23.4 Const General: cooperative, healthy appearing and comfortable Orientation/consciousness: patient oriented x3 Limitations: no limitations Resp Effort & Inspection: normal respiratory effort and able to speak in complete sentences Skin General skin exam: no rashes or lesions noted Neuro General: patient oriented x3 Extrem General: Yes full ROM Psych Appearance: grossly normal and well kempt Mental Status: mental status grossly normal Speech and movement: Normal speech and movement present Affect: Animated affect present and Anxious affect present Attitude: cooperative Thought process: Normal thought process present Thought content: Normal thought content present Results Reviewed Results Reviewed: Colonoscopy Findings: One medium sized polyp removed Past polypectomy site at 65 cms was examined and no recurrent/residual polyp seen. Moderate diverticulosis seen in the sigmoid colon Small hemorrhoids on retroflexed exam. Plan: Await pathology results Patient has an appointment on 09/19/22 in the GI Clinic with ESTUARDO Doe. Repeat Colonoscopy interval based on path results - in 2 years if polyps are adenomatous and 5 years if polyps are hyperplastic (due to a hx of? adenomatous colon polyps). Above findings were reviewed with the patient and colon polyps handout was given in the discharge area Name:?LinnBee Snow Age/Sex: 72/F Attending: Jaki Carson MD : 1950 Submitted by: Jaki Carson MD Copies to: Dat Portillo MD MR #: [id number] ? Status: REG [facility] Collected: 09/04/22 Location: [facility] Received: 09/04/22 Diagnosis Colon, cecal polyp:? Sessile or serrated lesion/polyp without dysplasia. Clinical History Pre-Op Dx:? Colon cancer screening, history of colon polyps Post-Op Dx: Diverticulosis, colon polyp, hemorrhoids Assessment & Plan Assessment & Plan (1) Adenomatous colon polyp: Comment: Large polyps, repeat colonoscopy 04/2022, sessile polyp 07/2022 given opportunity to ask questions- Many questions, needs reassurance Code(s): D12.6 - Benign neoplasm of colon, unspecified Plan: Repeat asymptomatic colonoscopy 2 years, 2024 Patient Instructions: A very pleasant somewhat anxious 72-year-old female personal history of colon polyps follows up after repeat colonoscopy with polypectomy again reviewed procedure report and pathology showing sessile polyp. Reassured Repeat colonoscopy 2 years- 2024 Encouraged to call questions or concerns Coding Level of Care Code Est Pt Level 3 (69337) Diagnoses Adenomatous colon polyp D12.6 Time Spent (min) 40
== END 2022-09-19 11:18 | disposition home or self-care (01) ==
LOC: HO.HGIW 09:48
PROVIDERS: PCP Internal Medicine; Visit Provider Physician Assistant
DX: D12.6 Benign neoplasm of colon, unspecified (principal)
CPT/HCPCS: 99213

== ENCOUNTER → 2022-09-19 09:48 | Outpatient (BNVA) | payer MEDICARE, OTHER, SELFPAY | PROVIDERS: PCP Internal Medicine; Visit Provider Physician Assistant | DX: D12.6 Benign neoplasm of colon, unspecified (principal) | CPT/HCPCS: 99212 ==

== ENCOUNTER 2023-03-05 08:49 | Outpatient (REF) | payer MEDICARE, OTHER, SELFPAY ==
[2023-03-05 11:27] LABS: Appearance Urine Clear; Color Urine Yellow; Glucose Urine UA Negative (Negative); Leukocyte Esterase Urine Negative (Negative); Nitrite Urine Negative (Negative); Specific Gravity - Urine 1.015 (1.005-1.025); UMIC TRIGGER UACC YES; Urine Blood Small (1+) (Negative); Urine Ketones Negative (Negative); Urine Protein Negative (Neg-Trace)
[2023-03-05 11:35] LABS: Bacteria Urine None Seen (None Seen); Hyaline Casts Urine 0-2 /LPF (0-2); RBC Urine 0-2 /HPF (0-2); Squamous Epithelial Cell Urine 0-2 /HPF (0-2); WBC Urine 0-5 /HPF (0-5)
[2023-03-05 11:49] LABS: MANUAL DIFF FLAG NO
[2023-03-05 12:09] LABS: Basophils Percent Auto 0.5 % (0-2); Eosinophils Percent Auto 0.7 % (0-4); Hematocrit 41.6 % (37.0-47.0); Hemoglobin 13.6 g/dl (12.0-16.0); Imm Gran Abs Auto 0.01 X10*3/uL (0.00-0.03); Imm Gran Pct Auto 0.2 % (0.0-0.4); Lymphocytes Absolute Auto 1.3 X10*3/uL (1.2-4.9); Lymphocytes Percent Auto 21.2 % (20-40); Mean Corpuscular HGB Conc 32.7 g/dl (31.0-35.0); Mean Corpuscular Hemoglobin 30.4 pg (27.0-33.0); Mean Corpuscular Volume 92.9 fL (80.0-98.0); Mean Platelet Volume 9.8 fL (9.4-12.3); Monocytes Absolute Auto 0.5 X10*3/uL (0.1-1.2); Monocytes Percent Auto 7.6 % (2-11); Neutrophils Absolute Auto 4.1 x10*3/uL (2.0-8.3); Neutrophils Percent Auto 69.8 % (45-73); Platelet Count 316 X10*3/uL (160-400); Red Blood Count 4.48 X10*6/uL (4.20-5.50); Red Cell Distribution Width 13.3 % (11.0-16.0); White Blood Count 5.9 X10*3/uL (4.8-10.8)
[2023-03-05 12:31] LABS: Alanine Aminotransferase 16 U/L (0-31); Alkaline Phosphatase 68 U/L (39-117); Anion Gap 12 (12-20); Aspartate Amino Transferase 20 U/L (5-31); Bilirubin Total 0.4 mg/dL (0.0-1.0); Blood Urea Nitrogen 18 mg/dL (9-16); Calcium 9.5 mg/dL (8.4-10.2); Carbon Dioxide 29 mmol/L (22-29); Chloride 102 mmol/L (96-108); Cholesterol 240 mg/dL (<200); Estimated Glomerular Filt Rate > 60; Glucose Fasting 85 mg/dL (60-99); HDL Cholesterol 82 mg/dL (>40); LDL Cholesterol Calculated 140 mg/dL (<100); Potassium 3.5 mmol/L (3.3-5.1); Sodium 139 mmol/L (135-145); Total Protein 7.3 g/dL (6.5-8.0); Triglycerides 92 mg/dL (<150)
== END 2023-03-05 08:50 | disposition home or self-care (01) ==
LOC: HO.10HDL 08:49
PROVIDERS: Visit Provider Internal Medicine
DX: I10 Essential (primary) hypertension (principal); E55.9 Vitamin D deficiency, unspecified
CPT/HCPCS: 36415; 80053; 80061; 81001; 82306; 85025

== ENCOUNTER 2023-05-07 12:20 | Outpatient (AMB) | payer MEDICARE, OTHER, SELFPAY ==
[2023-05-07 12:30] VITALS: BP 172/71; PULSE 83; BMI 24.0
--- NOTE | 2023-05-07 12:30 | MHC.OFFVIS ---
Intake Vital Signs 05/07/23 12:30 Height 5 ft Weight 123 lb 0.287 oz BMI 24.0 BP 172/71 H Blood Pressure Location Rt brachial Position Sitting Pulse 83 Intake Visit Reasons: pt req appointment Intake Note: Patient presents to in office visit today in follow up of acid reflux. CC: Patient states that she has a hiatal hernia and was having acid reflux when she requested this appointment. She states she is doing well today. Denies other GI symptoms. 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 She complains today of acid refluxfor just a couple days- it is not frequent- but when she gets nervous- admits anxiety today she is used to being seen at the [facility] however very anxious coming to [facility] -BP elevates. Her does have a cancer diagnoses she says he has somewhat failing certainly causes her stress as well Im good for now with the acid reflux however it does come and go- Appetite is pretty good, she does not eat much-, she is a nonsmoker She expresses her fear of anesthesia- She has no nausea, vomiting, hematemesis, hematochezia fever chills PFSH Medical History Goiter Vitamin D deficiency Osteoporosis Surgical History Hx of colonoscopy Hx of section Family History Father Stomach cancer Mother Breast cancer Social History Household Members Other:: Alcohol intake: never Patient Tobacco Use Status: Never used Tobacco Review of Systems Const All systems reviewed & are unremarkable except as noted in HPI and below Card Denies chest pain, Denies rapid heart rate and Denies dyspnea Resp Denies dyspnea GI Denies abdominal pain, Reports dyspepsia, Denies nausea and Denies vomiting Psych Reports anxiety Physical Exam Vital Signs: Last Vital Signs Pulse 83 05/07/23 12:30 BP 172/71 H 05/07/23 12:30 BMI result Body Mass Index 24.0 Const General: cooperative, comfortable, no acute distress, anxious and well groomed Orientation/consciousness: patient oriented x3 Limitations: no limitations Eyes Sclerae: sclerae normal Resp Effort & Inspection: normal respiratory effort and able to speak in complete sentences Auscultation: clear to auscultation bilaterally, no rales, no rhonchi and no wheezes Cardio Rate: regular rate Rhythm: regular rhythm Heart sounds: S1 normal heart sound present and S2 normal heart sound present GI Palpation (GI): Soft to palpation and nontender Auscultation: normal bowel sounds Skin General skin exam: no rashes or lesions noted Neuro General: patient oriented x3 Extrem General: Yes full ROM Psych Appearance: grossly normal and well kempt Mental Status: mental status grossly normal Speech and movement: Normal speech and movement present and Clear speech present Affect: Animated affect present and Anxious affect present Attitude: cooperative Thought process: Normal thought process present Thought content: Normal thought content present Insight: Good insight present (Psych) Judgement: Good judgement present (Psych) Results Reviewed Results Reviewed: olonoscopy Findings: One medium sized polyp removed Past polypectomy site at 65 cms was examined and no recurrent/residual polyp seen. Moderate diverticulosis seen in the sigmoid colon Small hemorrhoids on retroflexed exam. Plan: Await pathology results Patient has an appointment on 09/19/22 in the GI Clinic with ESTUARDO Doe. Repeat Colonoscopy interval based on path results - in 2 years if polyps are adenomatous and 5 years if polyps are hyperplastic (due to a hx of? adenomatous colon polyps). Above findings were reviewed with the patient and colon polyps handout was given in the discharge area Name:KatherinBee Age/Sex: 72/FAttending: Jaki Carson MD : 2Submitted by: Jaki Carson MD to: Dat Portillo MD MR #: [id number]? Status: REG [facility]: 09/04[facility]22 [facility]: 09[facility]22 Diagnosis Colon, cecal polyp:? Sessile or serrated lesion/polyp without dysplasia. Clinical History Pre-Op Dx:? Colon cancer screening, history of colon polyps Post-Op Dx: Diverticulosis, colon polyp, hemorrhoids Assessment & Plan Assessment & Plan (1) Adenomatous colon polyp: Comment: Large polyps, repeat colonoscopy 04/2022, sessile polyp 07/2022 given opportunity to ask questions- Many questions, needs reassurance Code(s): D12.6 - Benign neoplasm of colon, unspecified Plan: Repeat asymptomatic colonoscopy 2 years, 2024 Patient Instructions: A very pleasant somewhat anxious 72-year-old female personal history of colon polyps follows up after repeat colonoscopy with polypectomy again reviewed procedure report and pathology showing sessile polyp. Reassured Repeat colonoscopy 2 years- 2024 Assessment & Plan Assessment & Plan (1) Dyspepsia: Comment: Discussed EGD if need, expresses anxiety about anesthesia- Code(s): R10.13 - Epigastric pain Plan: HP-if positive will treat (2) Osteoporosis: Comment: Lost to follow-up Code(s): M81.0 - Age-related osteoporosis without current pathological fracture Plan: Referral to endocrinology Plan Reflux precautions reviewed Will get H pylori stool antigen if positive will treat She may begin pantoprazole 20 mg once specimen obtained Discuss anxiety may likely play a role Orders: Orders H pylori Ag Stool Today A04.8 - Other specified bacterial intestinal infections Referrals Endocrinology Referral M81.0 - Age-related osteoporosis without current pathological fracture Medications: New pantoprazole 20 mg PO QAM 30 tabs 6RF Patient Instructions: Pleasant very anxious 72-year-old female with intermittent dyspepsia-associates with anxiety-may likely play a role Reflux precautions reviewed Will get H pylori stool antigen if positive will treat She may begin pantoprazole 20 mg once specimen obtained-we will call her with results or she may call us Discuss anxiety may likely play a role Monitor blood pressure Due for polyp surveillance colonoscopy 2024 Coding Level of Care Code Est Pt Level 3 (68570) Diagnoses Dyspepsia R10.13 Osteoporosis M81.0 Time Spent (min) 40
== END 2023-05-07 14:13 | disposition home or self-care (01) ==
PROVIDERS: PCP Internal Medicine; Visit Provider Physician Assistant
DX: R10.13 Epigastric pain (principal); M81.0 Age-related osteoporosis without current pathological fracture
CPT/HCPCS: 99213

== ENCOUNTER → 2023-05-07 12:20 | Outpatient (BNVA) | payer MEDICARE, OTHER, SELFPAY | PROVIDERS: PCP Internal Medicine; Visit Provider Physician Assistant | DX: M81.0 Age-related osteoporosis without current pathological fracture (principal); R10.13 Epigastric pain | CPT/HCPCS: 99212 ==

== ENCOUNTER 2023-05-08 10:03 | Outpatient (REF) | payer MEDICARE, OTHER, SELFPAY | END 2023-05-08 10:04 | disposition home or self-care (01) | LOC: HO.WFDLDS 10:03 | PROVIDERS: Visit Provider Physician Assistant | DX: A04.8 Other specified bacterial intestinal infections (principal) | CPT/HCPCS: 87338 ==

== ENCOUNTER 2023-09-20 14:54 | Outpatient (REF) | payer MEDICARE, OTHER, SELFPAY ==
--- NOTE | ~2023-09-20 | MM_ITS ---
EXAMINATION: MM SCREENING DIGITAL BREAST TOMOSYNTHESIS, BILATERAL CLINICAL INFORMATION: Screening. Asymptomatic. COMPARISON: Mammography: This study is compared with prior exams dating back to 2020. TECHNIQUE: Digital breast tomosynthesis is performed in both the craniocaudal and mediolateral oblique views along with computer-aided detection (CAD). Direct 2-D images of each breast in the standard screening projections are also obtained. FINDINGS: There are scattered areas of fibroglandular density (ACR BI-RADS breast composition Category b). There are no significant masses, abnormal calcifications, or other abnormalities. MM/MM tomosynthesis screening BI IMPRESSION: No mammographic evidence of malignancy. ASSESSMENT: BI-RADS BI-RADS 1 - Negative RECOMMENDATION: Routine annual mammography screening. 1 year F/U This examination should not preclude the clinical evaluation of a suspicious palpable abnormality. This patient's information was entered into a reminder system with a target due date for their next mammogram. Electronically signed by: Kaylyn Osborn MD 10/18/2023 12:00 PM EDT
== END 2023-09-20 14:55 | disposition home or self-care (01) ==
LOC: HO.MAMMO 14:54
PROVIDERS: PCP Internal Medicine; Visit Provider Internal Medicine
DX: Z12.31 Encounter for screening mammogram for malignant neoplasm of breast (principal)
CPT/HCPCS: 77063; 77067

== ENCOUNTER → 2023-09-20 15:00 | Outpatient (BNV) | payer MEDICARE, OTHER, SELFPAY | PROVIDERS: PCP Internal Medicine; Visit Provider Radiology Diagnostic Radiology | DX: Z12.31 Encounter for screening mammogram for malignant neoplasm of breast (principal) | CPT/HCPCS: 77063; 77067 ==

== ENCOUNTER 2023-10-25 14:06 | Outpatient (REF) | payer MEDICARE, OTHER, SELFPAY ==
--- NOTE | ~2023-10-25 | MM_ITS ---
EXAMINATION: BONE DENSITOMETRY CLINICAL INDICATION: Osteoporosis. COMPARISON: Previous BD dated 12/31/2020 and baseline BD dated 10/05/2016. TECHNIQUE: Using a Personal DXA System (software version: 13.1) manufactured by [employer], dual-energy x-ray absorptiometry was performed of the lumbar spine and left hip. The images are of good technical quality. Summary results are attached. FINDINGS: LEFT FEMUR, NECK: Current: BMD 0.672 g/cm2, Z-score -0.6, T-score -2.6, osteoporosis. Prior: BMD 0.603 g/cm2. Baseline: BMD 0.675 g/cm2. LEFT FEMUR, TOTAL: Current: BMD 0.604 g/cm2, Z-score -1.4, T-score -3.2, osteoporosis, 0.2% increase from previous, 12.3% decrease from baseline (<5% change is not significant). Prior: BMD 0.603 g/cm2. Baseline: BMD 0.689 g/cm2. AP SPINE L1-L3 (excluding L4): The data of L1-L4 has been changed to exclude the L4 vertebral body, because degenerative sclerosis at this level may cause overestimation of lumbar spine density. Current: BMD 0.845 g/cm2, Z-score -0.7, T-score -2.7, osteoporosis, 8.9% decrease from previous, 13.2% decrease from baseline (<5% change is not significant). Prior: BMD 0.928 g/cm2. Baseline: BMD 0.973 g/cm2. IDENTIFIED RISK FACTORS: Menopause, osteoporosis. HISTORY OF FRACTURE: None listed. MEDICATIONS: Calcium. MM/XR DEXA axial skeleton IMPRESSION: 1. DIAGNOSIS: Osteoporosis based on the lowest T-score value of -3.2 in the total femur applying World Health Organization criteria. 2. 10-YEAR FRACTURE RISK PREDICTION, FRAX: According to the guidelines, FRAX calculation should only be performed on patients in the osteopenia bone density category. Therefore, FRAX was not performed on this patient. 3. Treatment Recommendations: NOF guidelines recommend consideration for treatment in postmenopausal women and men age 50 and older presenting with the following: -A hip or vertebral (clinical or morphometric) fracture. -T-score less than or equal to -2.5 at the femoral neck or spine after appropriate evaluation to exclude secondary causes. -Low bone mass at the hip or spine and a 10-year fracture probability by FRAX of greater than or equal to 3% for hip fracture or greater than or equal to 20% for major osteoporotic fracture based on the [place] adapted WHO algorithm. 4. Other Recommendations: All treatment decisions require clinical judgment and consideration of individual patient factors, including patient preferences, comorbidities, previous drug use, risk factors not captured in the FRAX model (e.g. frailty, falls, vitamin D deficiency, increased bone turnover, interval significant decline in bone density) and possible under or overestimation of fracture risk by FRAX. Additional medical evaluation for secondary cause of low bone mineral density may be appropriate. FUTURE SCAN RECOMMENDATION: People with diagnosed cases of osteoporosis or at high risk for fracture should have regular bone mineral density tests. For patients eligible for Medicare, routine testing is allowed once every 2 years. The testing frequency can be increased to one year for patients who have rapidly progressing disease, those who are receiving or discontinuing medical therapy to restore bone mass, or have additional risk factors. Electronically signed by: Kike Caldwell MD 10/30/2023 11:18 AM EDT
== END 2023-10-25 14:07 | disposition home or self-care (01) ==
LOC: HO.MAMMO 14:06
PROVIDERS: PCP Internal Medicine; Visit Provider Internal Medicine
DX: M81.0 Age-related osteoporosis without current pathological fracture (principal)
CPT/HCPCS: 77080

== ENCOUNTER 2024-02-11 13:05 | Outpatient (REF) | payer MEDICARE, OTHER, SELFPAY ==
--- NOTE | ~2024-02-11 | US_ITS ---
EXAMINATION: BILATERAL CAROTID ULTRASOUND WITH DOPPLER HISTORY: ABNORMAL EYE EXAM COMPARISON: There are no prior studies for comparison. TECHNIQUE: Real time and Color and Spectral doppler ultrasonography of the carotid and vertebral arteries was performed in multiple planes. FINDINGS: Plaque is seen bilaterally. VERTEBRAL FLOW DIRECTION: Antegrade bilaterally. PEAK SYSTOLIC VELOCITIES (in cm/sec): RIGHT: CCA: Prox: 118 Dist: 89.0 ICA: Prox: 97.2 Mid: 139 Dist: 277 ICA/CCA Ratio: 2.3 ECA: 124 Peak ICA EDV: 58.9 LEFT: CCA: Prox: 113 Dist: 97.0 ICA: Prox: 112 Mid: 142 Dist: 141 ICA/CCA Ratio: 1.3 ECA: 109 Peak ICA EDV: 28.0 US/US carotid duplex BI IMPRESSION: Findings consistent with 50-69% diameter stenosis of the right internal carotid artery and 0-49% stenosis of the left internal carotid artery by criteria similar to NASCET. Electronically signed by: Catarino Pathak MD 02/19/2024 11:23 AM [facility] [place]
--- OUTSIDE RECORDS SUMMARY | 2024-02-11 13:09 | XMS_ITS | Patient Health Record ---
Author Organization Dat Portillo MD Address [address] [place] [phone] Care Team Providers Care As400 Operator Name Role Phone Dat Portillo Primary Care Provider [phone] ALLERGIES No Known Allergies RESULTS Component Value Reference Range Notes Complete Blood Count Auto Di ff Reviewed date:03/05/2023 12:26:22 PM Interpretation: Performing Lab:[facility], [address] [place] [phone] Notes/Report: White Blood Count 5.9 4.8-10.8 X10*3/uL Red Blood Count 4.48 4.20-5.50 X10*6/uL Hemoglobin 13.6 12.0-16.0 g/dl Hematocrit 41.6 37.0-47.0 % Mean Corpuscular Volume 92.9 80.0-98.0 fL Mean Corpuscular Hemoglobin 30.4 27.0-33.0 pg Mean Corpuscular HGB Conc 32.7 31.0-35.0 g/dl Red Cell Distribution Width 13.3 11.0-16.0 % Platelet Count 316 160-400 X10*3/uL Mean Platelet Volume 9.8 9.4-12.3 fL Neutrophils Percent Auto 69.8 45-73 % Imm Gran Pct Auto 0.2 0.0-0.4 % Lymphocytes Percent Auto 21.2 20-40 % Monocytes Percent Auto 7.6 2-11 % Eosinophils Percent Auto 0.7 0-4 % Basophils Percent Auto 0.5 0-2 % NRBC Pct Auto 0.0 0.0-0.2 /100WBC Neutrophils Absolute Auto 4.1 2.0-8.3 x10*3/u L Imm Gran Abs Auto 0.01 0.00-0.03 X10*3/uL Lymphocytes Absolute Auto 1.3 1.2-4.9 X10*3/u L Monocytes Absolute Auto 0.5 0.1-1.2 X10*3/uL Eosinophils Absolute Auto 0.0 0.0-0.4 X10*3/u L Basophils Absolute Auto 0.0 0.0-0.2 X10*3/uL NRBC Abs Auto 0.000 0.0-0.012 X10*3/uL Comprehensive [place]. Panel Fa st Reviewed date:03/05/2023 12:44:53 PM Interpretation: Performing Lab:[facility], [address] [place] [phone] Notes/Report: Sodium 139 135-145 mmol/L Potassium 3.5 3.3-5.1 mmol/L Chloride 102 96-108 mmol/L Carbon Dioxide 29 22-29 mmol/L Anion Gap 12 12-20 Blood Urea Nitrogen 18 9-16 mg/dL Creatinine 0.79 0.5-1.4 mg/dL Estimated Glomerular Filt Rate > 60 NOTE: For -Jamaican individuals, multiply the result by 1.210. Chronic Kidney Disease: Estimated GFR < 60 mL/min/1.73m2 Severe Kidney Disease: Estimated GFR < 15 mL/min/1.73m2 Glucose Fasting 85 60-99 mg/dL Calcium 9.5 8.4-10.2 mg/dL Bilirubin Total 0.4 0.0-1.0 mg/dL Aspartate Amino Transferase 20 5-31 U/L Alanine Aminotransferase 16 0-31 U/L Total Protein 7.3 6.5-8.0 g/dL Albumin Level 4.0 3.5-5.0 g/dL Alkaline Phosphatase 68 39-117 U/L Lipid Panel Reviewed date:03/05/2023 12:38:19 PM Interpretation: Performing Lab:[facility], [address] [place] [phone] Notes/Report: Triglycerides 92 <150 mg/dL Desirable Triglyceride: less than 150 mg/dL Borderline High Triglyceride 150-199 mg/dL High Triglyceride: 200-499 mg/dL Very High Triglyceride: greater than or equal to 5OO mg/dL Cholesterol 240 <200 mg/dL Desirable Cholesterol: less than 200 mg/dL Borderline High Cholesterol: 200-239 mg/dL High Cholesterol: greater than 239 mg/dL LDL Cholesterol Calculated 140 <100 mg/dL Desirable LDL: less than 100 mg/dL Near Optimal/Above Optimal LDL: 110-129 mg/dL Borderline High LDL: 130-159 mg/dL High LDL: 160-189 mg/dL Very High LDL: greater than or equal to 190 mg/dL HDL Cholesterol 82 >40 mg/dL Desirable HDL: greater than 40 mg/dL Note: This HDL assay may give artificially low results in patients with liver disease. Vitamin D 25-OH Total Reviewed date:03/05/2023 12:35:59 PM Interpretation: Performing Lab:[facility], [address] [place] [phone] Notes/Report: Vitamin D 25-OH Total 98.0 >30 ng/mL Health Based Reference Values* < 20 ng/mL Deficient 20-30 ng/mL Insufficient > 30 ng/mL Sufficient *Nubia DAVIS. N Engl J Med. 2007;357:266-280 Care must be taken in interpreting Vitamin D results from different laboratories and methodologies. Published data demonstrated that results from patients undergoing hemodialysis may show a negative bias when tested with various automated 25-OH vitamin D assays when compared to LC-MS/MS. When testing samples from patients whose predominant form of Vitamin D is Vitamin D2, such as patients receiving Vitamin D2 supplementation, results that are subtherapeutic should be confirmed with another method such as LC-MS/MS. UA ClnCatch+Micro w/rflx Cul t Reviewed date:03/13/2023 07:27:37 AM Interpretation:see back 03-12-23 Performing Lab:[facility], [address] [place] [phone] Notes/Report: [id number] Urine, Clean Catch Color Urine Yellow Appearance Urine Clear PH 6.0 5.0-9.0 Glucose Urine UA Negative Negative mg/dL Urine Blood Small (1+) Negative Specific [place] - Urine 1.015 1.005-1.025 Urine Protein Negative Neg-Trace mg/dL Urine Ketones Negative Negative mg/dL Nitrite Urine Negative Negative Leukocyte Esterase Urine Negative Negative RBC Urine 0-2 0-2 /HPF WBC Urine 0-5 0-5 /HPF Squamous Epithelial Cell Urine 0-2 0-2 /HPF Bacteria Urine None Seen None Seen Hyaline Casts Urine 0-2 0-2 /LPF MM tomosynthesis screening B I Reviewed date:10/23/2023 08:45:48 AM Interpretation: Performing Lab: Notes/Report: [address] [place] [address] Mammography Report Signed Patient: Bee Holt MR#: [id number] [id number] : 1950 Acct:[id number] Age/Sex: 73 / F ADM Date: 09/20/23 Loc: HO.MAMMO Attending Dr: Dat Portillo MD Ordering Physician: Dat Portillo MD Results: 1Ne gative Date of Service: 09/20/23 Follow Up: 1 Year From [facility] Mammogram Procedure(s): MM tomosynthesis screening BI Accession Number(s): [id number] cc: Dat Portillo MD EXAMINATION: MM SCREENING DIGITAL BREAST TOMOSYNTHESIS, BILATERAL CLINICAL INFORMATION: Screening. Asymptomatic. COMPARISON: Mammography: This study is compared with prior exams dating back to 2020. TECHNIQUE: Digital breast tomosynthesis is performed in both the craniocaudal and mediolateral oblique views along with computer-aided detection (CAD). Direct 2-D images of each breast in the standard screening projections are also obtained. FINDINGS: There are scattered areas of fibroglandular density (ACR BI-RADS breast composition Category b). There are no significant masses, abnormal calcifications, or other abnormalities. MM/MM tomosynthesis screening BI IMPRESSION: No mammographic evidence of malignancy. ASSESSMENT: BI-RADS BI-RADS 1 - Negative RECOMMENDATION: Routine annual mammography screening. 1 year F/U This examination should not preclude the clinical evaluation of a suspicious palpable abnormality. This patient's information was entered into a reminder system with a target due date for their next mammogram. Electronically signed by: Kaylyn Osborn MD 10/18/2023 12:00 PM EDT RP Dictated By: Kaylyn Osborn MD Signed By: <Electronically signed by Kaylyn Osborn MD in OV> 10/18/23 1200 DD/ 1500 TD/TT: 09/20/23 1520 Attendant Honor Bar: XR DEXA axial skeleton Reviewed date:11/05/2023 08:57:02 AM Interpretation:left message for patient to call Performing Lab: Notes/Report: [facility]'[address] [place] [address] Mammography Report Signed Patient: eBe Holt MR#: [id number] : 1950 Acct:[id number] Age/Sex: 73 / F ADM Date: 10/25/23 Loc: TANVIR Attending Dr: Dat Portillo MD Ordering Physician: Dat Portillo MD Results: Date of Service: 10/25/23 Follow Up: Procedure(s): XR DEXA axial skeleton Accession Number(s): [id number] cc: Dat Portillo MD EXAMINATION: BONE DENSITOMETRY CLINICAL INDICATION: Osteoporosis. COMPARISON: Previous BD dated 12/31/2020 and baseline BD dated 10/05/2016. TECHNIQUE: Using a Victiv DXA System (software version: 13.1) manufactured by [employer], dual-energy x-ray absorptiometry was performed of the lumbar spine and left hip. The images are of good technical quality. Summary results are attached. FINDINGS: LEFT FEMUR, NECK: Current: BMD 0.672 g/cm2, Z-score -0.6, T-score -2.6, osteoporosis. Prior: BMD 0.603 g/cm2. Baseline: BMD 0.675 g/cm2. LEFT FEMUR, TOTAL: Current: BMD 0.604 g/cm2, Z-score -1.4, T-score -3.2, osteoporosis, 0.2% increase from previous, 12.3% decrease from baseline (<5% change is not significant). Prior: BMD 0.603 g/cm2. Baseline: BMD 0.689 g/cm2. AP SPINE L1-L3 (excluding L4): The data of L1-L4 has been changed to exclude the L4 vertebral body, because degenerative sclerosis at this level may cause overestimation of lumbar spine density. Current: BMD 0.845 g/cm2, Z-score -0.7, T-score -2.7, osteoporosis, 8.9% decrease from previous, 13.2% decrease from baseline (<5% change is not significant). Prior: BMD 0.928 g/cm2. Baseline: BMD 0.973 g/cm2. IDENTIFIED RISK FACTORS: Menopause, osteoporosis. HISTORY OF FRACTURE: None listed. MEDICATIONS: Calcium. MM/XR DEXA axial skeleton IMPRESSION: 1. DIAGNOSIS: Osteoporosis based on the lowest T-score value of -3.2 in the total femur applying World Health Organization criteria. 2. 10-YEAR FRACTURE RISK PREDICTION, FRAX: According to the guidelines, FRAX calculation should only be performed on patients in the osteopenia bone density category. Therefore, FRAX was not performed on this patient. 3. Treatment Recommendations: NOF guidelines recommend consideration for treatment in postmenopausal women and men age 50 and older presenting with the following: -A hip or vertebral (clinical or morphometric) fracture. -T-score less than or equal to -2.5 at the femoral neck or spine after appropriate evaluation to exclude secondary causes. -Low bone mass at the hip or spine and a 10-year fracture probability by FRAX of greater than or equal to 3% for hip fracture or greater than or equal to 20% for major osteoporotic fracture based on the [place] adapted WHO algorithm. 4. Other Recommendations: All treatment decisions require clinical judgment and consideration of individual patient factors, including patient preferences, comorbidities, previous drug use, risk factors not captured in the FRAX model (e.g. frailty, falls, vitamin D deficiency, increased bone turnover, interval significant decline in bone density) and possible under or overestimation of fracture risk by FRAX. Additional medical evaluation for secondary cause of low bone mineral density may be appropriate. FUTURE SCAN RECOMMENDATION: People with diagnosed cases of osteoporosis or at high risk for fracture should have regular bone mineral density tests. For patients eligible for Medicare, routine testing is allowed once every 2 years. The testing frequency can be increased to one year for patients who have rapidly progressing disease, those who are receiving or discontinuing medical therapy to restore bone mass, or have additional risk factors. Electronically signed by: Kike Caldwell MD 10/30/2023 11:18 AM EDT RP Dictated By: Kike Caldwell MD Signed By: <Electronically signed by Kike Caldwell MD in OV> 10/30/23 1118 DD/ 1430 TD/TT: 10/25/23 1455 Attendant Honor Bar: INDRA REASON FOR REFERRAL Reason osteoporosis Diagnosis 1 Age-related osteopor osis without current pathological fracture (M81.0) Referral Organization Dat Portillo MD Referring Provider First Name Dat Referring Provider Last Name Lindsey Referring Provider Speciality Internal M edicine Referred Provider Mari Quijano Referred Provider Specialty Endocrinolog y General Notes Jacy Pena 10:17:34 AM EDT > info faxed, patient will be making her own appt. Referral Priority Routine Referral Appointment Date 01/03/2024 MEDICATIONS Medication SIG (Take, Route, Frequency, Duration) Notes Start Date End Date Status Alendronate Sodium 70 MG 1 tablet 30 min utes before the first food, beverage or medicine of the day dissolved in 4 ounces of water Orally for 30 day(s) Active Calcium 600 MG 1 tablet with meals Orally Twice a day Active Vitamin D 50 MCG (1999 UT) 1 capsule Orally Once a day Active Pepcid AC 10 MG 1 tablet as needed Orally Twice a day 12/05/2018 Active Ibuprofen 800 MG 1 tablet Orally Thre e times a day for 30 day(s) 06/05/2014 Not-Taking IMMUNIZATIONS Vaccine Route Administration Date Status Comme nts zFluzone Quadrivalent IM Intramuscular 01/12/2015 Administered Fluarix Quadrivalent IM Intramuscular 01/10/2016 Administe red Flu Vaccine Unknown 11/02/2016 Administered PT WAS GIVE N THE VACCINE AT [facility]. Influenza High Dose IM Intramuscular 11/22/2017 Administer ed Covid Vaccine Unknown 04/28/2020 Administered Pfizer Covid Vaccine Unknown 05/19/2020 Administered Pfizer SARS-COV-2 Pfizer Unknown 01/29/2021 Administered Fluarix Quadrivalent Unknown 01/25/2021 Administered Bonilla sandoval's Influenza High Dose Unknown 03/18/2021 Administered Florencio rosario's I called the patient and she is aware that she had one 12-21. Flu Vaccine Unknown 04/07/2013 Refused Fluarix Quadrivalent Unknown 01/13/2021 Refused SOCIAL HISTORY Tobacco Use: Social History Observation Description Date Details (start date - stop date) Never Smoker NA - NA Sex Assigned At : Social History Observation Description Sex Assigned At Unknown Tobacco Use/Smoking Question Answer Notes Patient is a nonsmoker Additional Findings: Tobacco Non-User Cu rrent non-smoker, currently using no form of tobacco Alcohol Screen Question Answer Notes Did you have a drink containing alcohol in the p ast year? No Points 0 Interpretation Negative PROBLEMS Problem Type ICD Code Onset Dates Problem Status W/U Status Risk SNOMED Code Notes Problem Age-related osteoporosis without current pathological fracture (M81.0) Active confirmed 35089556 Problem Thyroid nodule (E04.1) Active confirmed 648667621 Problem Vitamin D deficiency (E55.9) Active confirmed Vitamin D deficiency (70109971) Problem Dupuytren contracture (M72.0) Active confirmed 410028357 Problem Gastroesophageal reflux disease without esophagitis (K21.9) Active confirmed 550670400 Problem Essential hypertension (I10) Active confirmed 91048920 Problem Abnormal mammogram (R92.8) Active confirmed 677477477 VITAL SIGNS Blood pressure diastolic 80 mm Hg 01/28/2024 bobbi ght is down 4 pounds since 09-24-23 Height 63 in 01/28/2024 weight is down 4 pounds since 09-24-23 Blood pressure systolic 192 mm Hg 01/28/2024 bobbig ht is down 4 pounds since 09-24-23 Weight 116 lbs 01/28/2024 weight is down 4 pounds since 09-24-23 BMI 20.55 kg/m2 01/28/2024 weight is down 4 pounds since 09-24-23 Encounters Encounter Location Date Provider Diagnosis Dat Portillo MD [address] [place] [address] Drive [address] [place] [id number] 03/12/2023 Dat Portillo Age-related osteoporosis without current pathological fracture M81.0 ; Vitamin D deficiency E55.9 ; Essential hypertension I10 ; Gastroesophageal reflux disease without esophagitis K21.9 and Depression screening Z13.31 Dat Portillo MD [address] [place] [id number] 03/05/2023 Dat Portillo Essential hypertensi on I10 and Vitamin D deficiency E55.9 Dat Portillo MD [address] [place] [id number] 09/24/2023 Dat Portillo Age-related osteoporosis without current pathological fracture M81.0 ; Essential hypertension I10 and Gastroesophageal reflux disease without esophagitis K21.9 Dat Portilol MD [address] [place] [id number] 01/28/2024 Dat Portillo Eye exam abnormal H5 7.9 Dat Portillo MD [address] [id number] 05/17/2023 Dat Portillo MD [address] [id number] 06/26/2023 Dat Portillo ASSESSMENTS Encounter Date Diagnosis Assessment Notes Treatment Notes Treatment Clinical Notes 03/12/2023 Age-related osteoporosis without current pathological fracture (ICD-10 - M81.0) is taking vitd and calcium, will continue currenok regiment 03/12/2023 Vitamin D deficiency (ICD-10 - E55.9) needs to decrease her vit d dosage 03/05/2023 Essential hypertensi on (ICD-10 - I10) 09/24/2023 Age-related osteoporosis without current pathological fracture (ICD-10 - M81.0) pending screening, THE ORDER HAS BEEN FAXED TO [facility] [place] [facility]TRAL[facility]ED SCHEDULING 09/24/2023 Essential hypertensi on (ICD-10 - I10) doing well. taking bp at home and is good, will continue current regiment 01/28/2024 Eye exam abnormal (ICD-10 - H57.9) need results from visit from dr zaman. he apparently saw something and told her to have pcp check carotids/ THE ORDER WAS FAXED TO [facility] [place] CENTRALIZED PER PATIENT REQUEST. DR HAGER OFFICE CLOSED ON SUNDAY, WILL CALL TOMORROW 03/12/2023 Essential hypertensi on (ICD-10 - I10) stable, will continue current regiment, will continue to monitor, no medication required at this time 03/05/2023 Vitamin D deficiency (ICD-10 - E55.9) 09/24/2023 Gastroesophageal reflux disease without esophagitis (ICD-10 - K21.9) stable , will continue current regiment 03/12/2023 Gastroesophageal reflux disease without esophagitis (ICD-10 - K21.9) stable, will continue current regiment 03/12/2023 Depression screening (ICD-10 - Z13.31) negative screen PLAN OF TREATMENT Pending Test Test Name Order Date Electrocardiogram (EKG) 12/05/2018 Electrocardiogram (EKG) 09/22/2016 Electrocardiogram (EKG) 11/22/2017 BONE DENSITY DEXA 09/24/2023 BONE DENSITY DEXA 10/07/2012 US CAROTID BILATERAL DOPPLER 01/28/2024 Next Appt Details Provider Name:Dat davilar, 03/06/2024 08:00:00 AM, [address] [place] [address], [address], [phone], Provider Name:Dat Gonzáles ier, 03/13/2024 02:30:00 PM, [address] [place] [address], [place] [address], [place], [place], [phone], Insurance Providers Payer Name Payer Address Payer Phone Subscriber Number Group Number Insured Name Patient Relationship to Insured Coverage Start Date Coverage End Date [employer] [address] [place] [address] [id number] Bee Holt Self - patient is the insured [facility] [address] [place] [phone] [id number] Bee Holt Self - patient is the insured [facility] [address] [place] [phone] [id number] Bee Holt Self - patient is the insured MEDICAL (GENERAL) HISTORY Medical History History ICD Code colonoscopy 10/21/2008 negativ e - repeat [address] Divya Lyles: 04/12/21 Repeat 1 yrs: 09/04/22 Colonoscopy- pending path pap smear - 08/28/2012; 09/2013 hematuria from kidney stones colonoscopy 09/03 repeat in 2 years
--- OUTSIDE RECORDS SUMMARY | 2024-02-11 13:09 | XMS_ITS ---
Author Organization Dat Portillo MD Address [address] [place] [phone] Care Team Providers Care Manager Forms Name Role Phone Dat Portillo Primary Care Provider REASON FOR VISIT balance Encounters Encounter Location Date Provider Diagnosis Dat Portillo MD [address] [place] [address] [place] [phone] 06/26/2023 Dat Portillo PLAN OF TREATMENT Next Appt Details Provider Name:Dat zee, 03/06/2024 08:00:00 AM, [address] [place] [address], [address], [phone], Provider Name:Dat zee, 03/13/2024 02:30:00 PM, [address] [place] [address], [address], [phone],
--- OUTSIDE RECORDS SUMMARY | 2024-02-11 13:09 | XMS_ITS ---
Author Organization Dat Portillo MD Address [address] [place] [phone] Care Team Providers Care Slip Cover Cutter Name Role Phone Dat Portillo Primary Care Provider ALLERGIES No Known Allergies REASON FOR VISIT discuss having carotid US per Dr. Myers MEDICATIONS Medication SIG (Take, Route, Frequency, Duration) [...] a day for 30 day(s) 06/05/2014 Not-Taking VITAL SIGNS BMI 20.55 kg/m2 01/28/2024 Blood pressure systolic 192 mm Hg 01/28/20 24 Blood pressure diastolic 80 mm Hg 024 Height 63 in 01/28/2024 Weight 116 lbs 01/28/2024 weight is down 4 pounds sin e 09-24-23 Encounters Encounter Location Date Provider Diagnosis Dat Portillo MD [address] [place] [phone] 01/28/2024 Dat Portillo Eye exam abnormal H57.9 ASSESSMENTS Encounter Date Diagnosis Assessment Notes Treatment Notes Treatment Clinical Notes 01/28/2024 Eye exam abnormal (ICD-10 - H57.9) need results from visit from dr zaman. he apparently saw something and told her to have pcp check carotids/ THE ORDER WAS FAXED TO [facility] [place] CENTRALIZED PER PATIENT REQUEST. DR HAGER OFFICE CLOSED ON SUNDAY, WILL CALL TOMORROW PLAN OF TREATMENT Treatment Notes Assessment Notes Eye exam abnormal need results from vi sit from dr zaman. he apparently saw something and told her to have pcp check carotids/ THE ORDER WAS FAXED TO [facility] [place] CENTRALIZED PER PATIENT REQUEST. DR HAGER OFFICE CLOSED ON SUNDAY, WILL CALL TOMORROW Pending Test Test Name Order Date US CAROTID BILATERAL DOPPLER 01/28/2024 Next Appt Details Provider Name:Dat zee, 03/06/2024 08:00:00 AM, [address] [place] [address], [address], [phone], Provider Name:Dat zee, 03/13/2024 02:30:00 PM, [address] [place] [address], [address], [phone], Progress Notes * Examination Category Sub-Category Detail Notes General Examination GENERAL APPEARANCE: alert, w ell hydrated, in no distress NECK/THYROID: carotid pulse normal , no carotid bruit HEART: regular rate and rhy thm , no murmurs, rubs, gallops LUNGS: no wheezes, rales, r honchi , good air movement , clear to auscultation bilaterally SKIN: good turgor
--- OUTSIDE RECORDS SUMMARY | 2024-02-11 13:09 | XMS_ITS ---
Author Organization Dat Portillo MD Address [address] [place] [phone] Care Team Providers Care Order Filler Name Role Phone Dat Portillo Primary Care Provider ALLERGIES No Known Allergies REASON FOR VISIT 6 MO F/U MEDICATIONS Medication SIG (Take, Route, Frequency, Duration) Notes Start Date End Date Status Calcium 600 MG 1 tablet with meals Orally Twice a day Active Ibuprofen 800 MG 1 tablet Orally Thre e times a day for 30 day(s) 06/05/2014 Not-Taking Vitamin D 50 MCG (1999 UT) 1 capsule Orally Once a day Active Pepcid AC 10 MG 1 tablet as needed Orally Twice a day 12/05/2018 Active VITAL SIGNS BMI 21.25 kg/m2 09/24/2023 Blood pressure systolic 158 mm Hg 09/24/19 24 Blood pressure diastolic 70 mm Hg 024 Height 63 in 09/24/2023 Weight 120 lbs 09/24/2023 weight is up 2 pounds since 03-12-23 Encounters Encounter Location Date Provider Diagnosis Dat Portillo MD [address] [place] [phone] 09/24/2023 Dat Portillo Age-related osteoporosis without current pathological fracture M81.0 ; Essential hypertension I10 and Gastroesophageal reflux disease without esophagitis K21.9 ASSESSMENTS Encounter Date Diagnosis Assessment Notes Treatment Notes Treatment Clinical Notes 09/24/2023 Age-related osteoporosis without current pathological fracture (ICD-10 - M81.0) pending screening, THE ORDER HAS BEEN FAXED TO [facility] [place] [place] CENTRALIZED SCHEDULING 09/24/2023 Essential hypertensi on (ICD-10 - I10) doing well. taking bp at home and is good, will continue current regiment 09/24/2023 Gastroesophageal reflux disease without esophagitis (ICD-10 - K21.9) stable , will continue current regiment PLAN OF TREATMENT Treatment Notes Assessment Notes Age-related osteoporosis wit hout current pathological fracture pending screening, THE ORDER HAS BEEN FAXED TO [facility] [place] [place] CENTRALIZED SCHEDULING Essential hypertension doing well. takin g bp at home and is good, will continue current regiment Gastroesophageal reflux dise ase without esophagitis stable , will continue current regiment Pending Test Test Name Order Date BONE DENSITY DEXA 09/24/2023 Next Appt Details Provider Name:Dat eze, 03/06/2024 08:00:00 AM, [address] [place] [address], [address], [phone], Provider Name:Dat zee, 03/13/2024 02:30:00 PM, [address] [place] [address], [place] [address], [place], [place], [phone], Progress Notes * Examination Category Sub-Category Detail Notes General Examination GENERAL APPEARANCE: alert, w ell hydrated, in no distress HEAD: normocephalic HEART: regular rate and rhy thm, no murmurs, rubs, gallops LUNGS: no wheezes, rales, r honchi, good air movement, clear to auscultation bilaterally SKIN: good turgor
== END 2024-02-11 13:06 | disposition home or self-care (01) ==
LOC: HO.US 13:05
PROVIDERS: PCP Internal Medicine; Visit Provider Internal Medicine
DX: H57.9 Unspecified disorder of eye and adnexa (principal); I65.21 Occlusion and stenosis of right carotid artery
CPT/HCPCS: 93880

== ENCOUNTER → 2024-02-11 13:07 | Outpatient (BNV) | payer MEDICARE, OTHER, SELFPAY | PROVIDERS: PCP Internal Medicine; Visit Provider Radiology Diagnostic Radiology | DX: I65.23 Occlusion and stenosis of bilateral carotid arteries (principal) | CPT/HCPCS: 93880 ==

== ENCOUNTER 2024-03-06 08:29 | Outpatient (REF) | payer MEDICARE, OTHER, SELFPAY ==
[2024-03-06 11:33] LABS: MANUAL DIFF FLAG NO
[2024-03-06 11:35] LABS: Appearance Urine Clear; Color Urine Yellow; Glucose Urine UA Negative (Negative); Leukocyte Esterase Urine Trace (Negative); Nitrite Urine Negative (Negative); PH 6.5 (5.0-9.0); UMIC TRIGGER UACC YES; Urine Blood Trace (Negative); Urine Ketones Negative (Negative); Urine Protein Negative (Neg-Trace)
[2024-03-06 11:38] LABS: Bacteria Urine None Seen (None Seen); Hyaline Casts Urine 0-2 /LPF (0-2); Squamous Epithelial Cell Urine 0-2 /HPF (0-2); WBC Urine 0-5 /HPF (0-5)
[2024-03-06 11:41] LABS: Basophils Percent Auto 0.4 % (0-2); Eosinophils Percent Auto 0.6 % (0-4); Hematocrit 41.7 % (37.0-47.0); Hemoglobin 13.8 g/dl (12.0-16.0); Imm Gran Abs Auto 0.01 X10*3/uL (0.00-0.03); Imm Gran Pct Auto 0.2 % (0.0-0.4); Lymphocytes Percent Auto 18.6 % (20-40); Mean Corpuscular HGB Conc 33.1 g/dl (31.0-35.0); Mean Corpuscular Hemoglobin 30.3 pg (27.0-33.0); Mean Corpuscular Volume 91.4 fL (80.0-98.0); Mean Platelet Volume 9.2 fL (9.4-12.3); Monocytes Absolute Auto 0.4 X10*3/uL (0.1-1.2); Monocytes Percent Auto 7.9 % (2-11); Neutrophils Absolute Auto 3.8 x10*3/uL (2.0-8.3); Neutrophils Percent Auto 72.3 % (45-73); Platelet Count 320 X10*3/uL (160-400); Red Blood Count 4.56 X10*6/uL (4.20-5.50); Red Cell Distribution Width 13.6 % (11.0-16.0); White Blood Count 5.2 X10*3/uL (4.8-10.8)
[2024-03-06 12:18] LABS: Alanine Aminotransferase 15 U/L (0-31); Albumin Level 4.1 g/dL (3.5-5.0); Alkaline Phosphatase 57 U/L (39-117); Anion Gap 11 (12-20); Aspartate Amino Transferase 22 U/L (5-31); Bilirubin Total 0.6 mg/dL (0.0-1.0); Blood Urea Nitrogen 18 mg/dL (9-16); Calcium 9.3 mg/dL (8.4-10.2); Carbon Dioxide 28 mmol/L (22-29); Chloride 105 mmol/L (96-108); Cholesterol 222 mg/dL (<200); Estimated Glomerular Filt Rate > 60; Glucose Fasting 90 mg/dL (60-99); HDL Cholesterol 83 mg/dL (>40); LDL Cholesterol Calculated 122 mg/dL (<100); Potassium 3.8 mmol/L (3.3-5.1); Sodium 140 mmol/L (135-145); Total Protein 7.4 g/dL (6.5-8.0); Triglycerides 86 mg/dL (<150)
[2024-03-06 12:35] LABS: Vitamin D 25-OH Total 39.5 ng/mL (>30)
== END 2024-03-06 08:30 | disposition home or self-care (01) ==
LOC: HO.WFDLDS 08:29
PROVIDERS: Visit Provider Internal Medicine
DX: I65.23 Occlusion and stenosis of bilateral carotid arteries (principal); H35.039 Hypertensive retinopathy, unspecified eye; E55.9 Vitamin D deficiency, unspecified; I10 Essential (primary) hypertension
CPT/HCPCS: 36415; 80053; 80061; 81001; 82306; 85025; 99202

== ENCOUNTER 2024-03-06 14:24 | Outpatient (AMB) | payer MEDICARE, OTHER, SELFPAY ==
--- NOTE | 2024-03-06 14:28 | MHC.OFFVIS ---
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 No complaints. 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 This all began as workup by Dr. Myers due to hypertensive retinopathy. She subsequently underwent carotid ultrasound and was sent over to us. She is asymptomatic in terms of her carotids. She denies any lateralizing signs or symptoms speech disturbances or visual field deficits. Of note she is a nonsmoker nondiabetic. She walks nearly 4 miles daily and remains quite active. She is now for follow-up with ultrasound testing. PFSH Medical History Goiter Vitamin D deficiency Osteoporosis Surgical History Hx of colonoscopy Hx of section Family History Father Stomach cancer Mother Breast cancer Social History Household Members Other:: Alcohol intake: never Patient Tobacco Use Status: Never used Tobacco Review of Systems Const All systems reviewed & are unremarkable except as noted in HPI and below Reports no additional complaints ENT Reports Normal hearing present Card Denies chest pain, Denies chest pain at rest, Denies chest pain with activity and Denies pedal edema Resp Denies cough GI Denies abdominal pain Musc Denies abnormal gait, Denies muscle cramps and Denies radiating pain into limb Skin/Breast Denies skin ulcer and Denies wounds Neuro Reports Normal hearing present and Denies abnormal gait Psych Reports no additional complaints Physical Exam Const General: cooperative, healthy appearing and comfortable Orientation/consciousness: oriented to person, oriented to place and oriented to time HEENT Head: Yes normal to inspection Neck Neck: Yes normal visual inspection Carotids: no bruits Chest Chest palpation & inspection: normal inspection of the chest Resp Effort & Inspection: normal respiratory effort and able to speak in complete sentences Auscultation: clear to auscultation bilaterally, no crackles, no rales, no rhonchi and no wheezes Cardio Rate: regular rate Rhythm: regular rhythm Heart sounds: S1 normal heart sound present and S2 normal heart sound present Bruits: no carotid bruits Peripheral pulses: Peripheral pulses 2+ throughout GI Inspection: Yes normal to inspection Skin Wounds: no wounds Hair: normal Neuro General: oriented to person, oriented to place and oriented to time Cranial nerves: Yes CN's II-XII intact bilaterally and Yes Normal hearing present Cognition (Neuro): normal cognition Motor exam (neuro): 5/5 motor strength present throughout Extrem Other: venous exam: No significant superficial varicosities or spider telangiectasias, minimal edema General: No clubbing, No cyanosis and No edema Psych Appearance: grossly normal Mental Status: mental status grossly normal Speech and movement: Normal speech and movement present Results Reviewed Results Reviewed: Carotid testing dated 02/11/2024 demonstrates right-sided 0-49% stenosis and left side 50-69% stenosis. Peak systolic of left was 277 with a ratio of 2.3. I do suspect it is closer to the 50% side. Written report and images were reviewed. Assessment & Plan Assessment & Plan (1) Bilateral carotid artery stenosis: Code(s): I65.23 - Occlusion and stenosis of bilateral carotid arteries Category: Medical Plan: In short patient has asymptomatic carotid disease. We have reviewed signs and symptoms of a stroke. We also discussed risk factor modification inclusive a healthy diet low in cholesterol. The patient will follow up with us with surveillance ultrasound of the carotids six-month. Should there be any changes or signs or symptoms of a stroke we will be happy to see them back sooner. Thank you for allowing us to participate in this patient's care. If there are any questions or concerns please do not hesitate to contact us. Orders: Orders US carotid duplex BI 6 Months I65.23 - Occlusion and stenosis of bilateral carotid arteries Coding Level of Care Code New Pt Level 4 (02876) Complex EM visit Add On G2211 Diagnoses Bilateral carotid artery stenosis I65.23
== END 2024-03-06 15:01 | disposition home or self-care (01) ==
PROVIDERS: PCP Internal Medicine; Visit Provider Surgery Vascular Surgery
DX: I65.23 Occlusion and stenosis of bilateral carotid arteries (principal)
CPT/HCPCS: 99204; G2211

== ENCOUNTER 2024-05-12 09:42 | Outpatient (REF) | payer MEDICARE, OTHER, SELFPAY ==
[2024-05-12 13:16] LABS: Blood Urea Nitrogen 27 mg/dL (9-16); Estimated Glomerular Filt Rate > 60
== END 2024-05-12 09:43 | disposition home or self-care (01) ==
LOC: HO.WFDLDS 09:42
PROVIDERS: Visit Provider Internal Medicine
DX: I10 Essential (primary) hypertension (principal); I65.23 Occlusion and stenosis of bilateral carotid arteries
CPT/HCPCS: 36415; 82565; 84520

== ENCOUNTER 2024-06-17 09:40 | Outpatient (REF) | payer MEDICARE, OTHER, SELFPAY ==
--- OUTSIDE RECORDS SUMMARY | 2024-06-17 10:42 | XMS_ITS | Patient Health Record ---
Author Organization Dat Portillo MD Address [address] [place] [phone] Care Team Providers Care Field Cane Scale Clerk Name Role Phone Dat Portillo Primary Care Provider Allergies No Known Allergies Results Component Value Reference Range Notes MM tomosynthesis screening B I Reviewed date:10/23/2023 08:45:48 AM Interpretation: Performing Lab: Notes/Report: [facility]'[address] [place] [address] Mammography Report Signed Patient: Bee Holt MR#: [id number] 041 : 1950 Acct:[id number] Age/Sex: 73 / F ADM Date: 09/20/23 Loc: HO.MAMMO Attending Dr: Dat Portillo MD Ordering Physician: Dat Portillo MD Results: 1Ne gative Date of Service: 09/20/23 Follow Up: 1 Year From Orig inal Mammogram Procedure(s): MM tomosynthesis screening BI Accession Number(s): [id number] cc: Dat Portillo MD EXAMINATION: MM SCREENING [...] Kaylyn Osborn MD 10/18/2023 12:00 PM EDT Dictated By: Kaylyn Osborn MD Signed By: <Electronically signed by Kaylyn Osborn MD in OV> 10/18/23 1200 DD/ 1500 TD/TT: 09/20/23 1520 Warp Knitter: [facility] [address] [place] [address] Mammography Report Signed Patient: Padmini Holt MR#: [id number] 041 : 1950 Acct:[id number] Age/Sex: 73 / F ADM Date: 09/20/23 Loc: TANVIR Attending Dr: Dat Portillo MD Ordering Physician: Dat Portillo MD Results: 1Ne gative Date of Service: 10/05 Follow Up: 1 Year From Orig inal Mammogram Procedure(s): MM kiki osynthesis screening BI Accession Number(s): [id number] cc: Dat Portillo MD EXAMINATION: MM SCREENING DIGITAL BREAST TOMOSYNTHESIS, BILATERAL CLINICAL INFORMATION: Screening. Asymptomatic. COMPARISON: Mammography: This st udy is compared with prior exams dating back to 2020. TECHNIQUE: Digital breast tomos ynthesis is performed in both the craniocaudal and mediolateral oblique views along with computer-aided detection (CAD). Direct 2-D images of each breast in the standard screening projections are also obtained. FINDINGS: There are scattered areas of fibroglandular density (ACR BI-RADS breast composition Category b). There are no signifi cant masses, abnormal calcifications, or other abnormalities. M M/MM tomosynthesis screening BI IMPRESSION: No mammographic evid ence of malignancy. ASSESSMENT: BI-RADS BI-RADS 1 - Negative RECOMMENDATION: Routine annual mammo graphy screening. 1 year F/U This examination shanique uld not preclude the clinical evaluation of a suspicious palpable abnormality. This patient's infor mation was entered into a reminder system with a target due date for their next mammogram. Electronically karina d by: Kaylyn Osborn MD 10/18/2023 12:00 PM EDT RP Dictated By: Kaylyn Osborn MD Signed By: <[facility] signed by Kaylyn Osborn MD in OV> 10/18/23 1200 DD/ 1500 TD/TT: 09/20/23 1520 Warp Knitter: XR DEXA axial skeleton Reviewed date:11/05/2023 08:57:02 AM Interpretation:left message for patient to call Performing Lab: Notes/Report: [facility] [address] [place] [address] Mammography Report Signed Patient: Bee Hotl MR#: [id number] 041 : 1950 Acct:[id number] Age/Sex: 73 / F ADM Date: 10/25/23 Loc: MAMMO Attending Dr: Dat Portillo MD Ordering Physician: Dat Portillo MD Results: Date of Service: 10/25/23 Follow Up: Procedure(s): XR DEXA axial skeleton Accession Number(s): [id number] cc: Dat Portillo MD EXAMINATION: BONE DENSITOMETRY CLINICAL INDICATION: Osteoporosis. COMPARISON: Previous BD dated 12/31/2020 and baseline BD dated 10/05/2016. TECHNIQUE: Using a S[employer] DXA System (software version: 13.1) manufactured by [employer], dual-energy x-ray absorptiometry was performed of the [...] Kike Caldwell MD 10/30/2023 11:18 AM EDT Dictated By: Kike Caldwell MD Signed By: <Electronically signed by Kike Caldwell MD in OV> 10/30/23 1118 DD/ 1430 TD/TT: 10/25/23 1455 Warp Knitter: INDRA [place] [facility] [address] [place] [address] Mammography Report Signed Patient: Padmini Holt MR#: [id number] 041 : 1950 Acct:[id number] Age/Sex: 73 / F ADM Date: 10/25/23 Loc: HO.MAMMO Attending Dr: Dat Portillo MD Ordering Physician: Dat Portillo MD Results: Date of Service: 02/04 Follow Up: Procedure(s): XR DEX A axial skeleton Accession Number(s): [id number] cc: Dat Portillo MD EXAMINATION: BONE DENSITOMETRY CLINICAL INDICATION: Osteoporosis. COMPARISON: Previous BD dated and baseline BD dated 10/05/2016. TECHNIQUE: Using a [employer] Advance DXA System (software version: 13.1) [employer], dual-energy x-ray absorptiometry was performed of the lumbar spine and left hip. The images are of good technical quality. Shawn clinton results are attached. FINDINGS: LEFT FEMUR, NECK: Current: BMD 0.672 g /cm2, Z-score -0.6, T-score -2.6, osteoporosis. Prior: BMD 0.603 g/cm2. Baseline: BMD 0.675 g/cm2. LEFT FEMUR, TOTAL: Current: BMD 0.604 g /cm2, Z-score -1.4, T-score -3.2, osteoporosis, 0.2% increase from p revious, 12.3% decrease from baseline (<5% change is not significant). Prior: BMD 0.603 g/cm2. Baseline: BMD 0.689 g/cm2. AP SPINE L1-L3 (excl uding L4): The data of L1-L4 has been changed to exclude the L4 verte bral body, because degenerative sclerosis at this level may cause over estimation of lumbar spine density. Current: BMD 0.845 g /cm2, Z-score -0.7, T-score -2.7, osteoporosis, 8.9% decrease from p revious, 13.2% decrease from baseline (<5% change is not significant). Prior: BMD 0.928 g/cm2. Baseline: BMD 0.973 g/cm2. IDENTIFIED RISK FACTORS: Menopause, osteoporosis. HISTORY OF FRACTURE: None listed. MEDICATIONS: Calcium. M M/XR DEXA axial skeleton IMPRESSION: 1. DIAGNOSIS: Osteop orosis based on the lowest T-score value of -3.2 in the total femur appl manish World Health Organization criteria. 2. 10-YEAR FRACTURE RISK PREDICTION, FRAX: According to the guidelines, FRAX calculation shanique uld only be performed on patients in the osteopenia bone density categor y. Therefore, FRAX was not performed on this patient. 3. Treatment Recomme ndations: NOF guidelines recommend consideration for treatment in pos tmenopausal women and men age 50 and older presenting with the following: -A hip or vertebral (clinical or morphometric) fracture. -T-score less than o r equal to -2.5 at the femoral neck or spine after appropriate evaluati on to exclude secondary causes. -Low bone mass at th e hip or spine and a 10-year fracture probability by FRAX of greater t gomez or equal to 3% for hip fracture or greater than or equal to 20% for major osteoporotic fracture based on the [place] adapted WHO algorithm. 4. Other Recommendat ions: All treatment decisions require clinical judgment and conside ration of individual patient factors, including patient preferences, comorbidities, previous drug use, risk factors not captured in the FRAX model (e.g. frailty, falls, vitamin D deficiency, increased bone turno warner, interval significant decline in bone density) and possible under o r overestimation of fracture risk by FRAX. Additional medical e valuation for secondary cause of low bone mineral density may be appropriate. FUTURE SCAN RECOMMENDATION: People with diagnose d cases of osteoporosis or at high risk for fracture should have regular bone mineral density tests. For patients eligible for Medicar e, routine testing is allowed once every 2 years. The testing frequenc y can be increased to one year for patients who have rapidly progres sing disease, those who are receiving or discontinuing medica l therapy to restore bone mass, or have additional risk factors. Electronically karina d by: Kike Caldwell MD 10/30/2023 11:18 AM EDT RP Dictated By: Kike Caldwell MD Signed By: <Electro nically signed by Kike Caldwell MD in OV> 10/30/23 1118 DD/ 1430 TD/TT: 10/25/23 1455 Warp Knitter: INDRA US carotid duplex BI Reviewed date:02/21/2024 11:42:28 AM Interpretation: Performing Lab: Notes/Report: [address] [address] Ultrasound Report Signed Patient: Bee Holt MR#: [id number] 041 : 1950 Acct:[id number] Age/Sex: 73 / F ADM Date: 02/11/24 Loc: HO.US Attending Dr: Dat Portillo MD Ordering Physician: Dat Portillo MD Date of Service: 02/11/24 Procedure(s): US carotid duplex BI Accession Number(s): [id number] cc: Dat Portillo MD EXAMINATION: BILATERAL CAROTID ULTRASOUND WITH DOPPLER HISTORY: ABNORMAL EYE EXAM COMPARISON: There are no prior studies for comparison. TECHNIQUE: Real time and Color and Spectral doppler ultrasonography of the carotid and vertebral arteries was performed in multiple planes. FINDINGS: Plaque is seen bilaterally. VERTEBRAL FLOW DIRECTION: Antegrade bilaterally. PEAK SYSTOLIC VELOCITIES (in cm/sec): RIGHT: CCA: Prox: 118 Dist: 89.0 ICA: Prox: 97.2 Mid: 139 Dist: 277 ICA/CCA Ratio: 2.3 ECA: 124 Peak ICA EDV: 58.9 LEFT: CCA: Prox: 113 Dist: 97.0 ICA: Prox: 112 Mid: 142 Dist: 141 ICA/CCA Ratio: 1.3 ECA: 109 Peak ICA EDV: 28.0 US/US carotid duplex BI IMPRESSION: Findings consistent with 50-69% diameter stenosis of the right internal carotid artery and 0-49% stenosis of the left internal carotid artery by criteria similar to NASCET. Electronically signed by: Catarino Pathak MD 02/19/2024 11:23 AM [facility] Dictated By: Catarino Pathak MD Signed By: <Electronically signed by Catarino Pathak MD in OV> 02/19/24 1123 DD/ 1320 TD/TT: 02/11/24 1346 Warp Knitter: [place] [address] Ultrasound Report Signed Patient: Padmini Holt MR#: [id number] 041 : 1950 Acct:[id number] Age/Sex: 73 / F ADM Date: 02/11/24 Loc: HO.US Attending Dr: Dat Portillo MD Ordering Physician: Dat Portillo MD Date of Service: 02/11/24 Procedure(s): US car otid duplex BI Accession Number(s): [id number] cc: Dat Portillo MD EXAMINATION: BILATER AL CAROTID ULTRASOUND WITH DOPPLER HISTORY: ABNORMAL EYE EXAM COMPARISON: There ar e no prior studies for comparison. TECHNIQUE: Real time and Color and Spectral doppler ultrasonography of the carotid and vert ebral arteries was performed in multiple planes. FINDINGS: Plaque is seen bilaterally. VERTEBRAL FLOW DIREC TION: Antegrade bilaterally. PEAK SYSTOLIC VELOCI TIES (in cm/sec): RIGHT: CCA: Prox: 118 Dist: 89.0 ICA: Prox: 97.2 Mid: 139 Dist: 277 ICA/CCA Ratio: 2.3 ECA: 124 Peak ICA EDV: 58.9 LEFT: CCA: Prox: 113 Dist: 97.0 ICA: Prox: 112 Mid: 142 Dist: 141 ICA/CCA Ratio: 1.3 ECA: 109 Peak ICA EDV: 28.0 U S/US carotid duplex BI IMPRESSION: Findings consistent with 50-69% diameter stenosis of the right internal carotid artery and 0 -49% stenosis of the left internal carotid artery by criteria similar to NASCET. Electronically karina d by: Catarino Pathak MD 02/19/2024 11:23 AM EST RP Dictated By: Catarino Pathak MD Signed By: <Brenton ically signed by Catarino Pathak MD in OV> 02/19/24 1123 DD/ 1320 TD/TT: 02/11/24 1346 Warp Knitter: Reason For Referral Reason Bilateral Carotid ar omar stenosis Diagnosis 1 Bilateral carotid ar omar stenosis (I65.23) Referral Organization Dat Portillo MD Referring Provider First Name Dat Referring Provider Last Name Lindsey Referring Provider Speciality Internal edicine Referred Provider CESAR LEONARD Referred Provider Specialty Vascular Marcy zarina General Notes Jacy Pena 11:40:02 AM EST > info faxed, Jacy Pena 02/26/2024 02:36:31 PM > patient is aware of appt Referral Priority Routine Referral Appointment Date 03/06/2024 Reason Shortness of breath Diagnosis 1 Shortness of breath (R06.02) Referral Organization Dat Portillo MD Referring Provider First Name Dat Referring Provider Last Name Lindsey Referring Provider Speciality Internal edicine Referred Provider Rach, Alen Referred Provider Specialty Cardiovascul ar Disease General Notes Jacy Pena 0 05/23/2024 01:20:47 PM >info faxed Referral Priority Routine Medications Medication SIG (Take, Route, Frequency, Duration) Notes Start Date End Date Status Alendronate Sodium 70 MG 1 tablet 30 min utes before the first food, beverage or medicine of the day dissolved in 4 ounces of water Orally for 30 day(s) Active Melatonin 5 MG 1 tablet in the even ing Orally Once a day Active Valsartan 80 MG 1 tablet Orally Once a day for 30 days 05/19/2024 Active Ibuprofen 800 MG 1 tablet Orally Thre e times a day for 30 day(s) 06/05/2014 Not-Taking Aspirin 81 81 MG 1 tablet Orally Once a day for 30 day(s) 03/13/2024 Active Vitamin D 50 MCG (1999 UT) 1 capsule Orally Once a day Active Calcium 600 MG 1 tablet with meals Orally Twice a day Active Immunizations Vaccine Route Administration Date Status Comme nts zFluzone Quadrivalent IM Intramuscular 01/12/2015 Administered Fluarix Quadrivalent IM Intramuscular 01/10/2016 Administe red Flu Vaccine Unknown 11/02/2016 Administered PT WAS GIVE N THE VACCINE AT [facility] [employer]. Influenza High Dose IM Intramuscular 11/22/2017 Administer ed Covid Vaccine Unknown 04/28/2020 Administered Pfizer Covid Vaccine Unknown 05/19/2020 Administered Pfizer SARS-COV-2 Pfizer Unknown 01/29/2021 Administered Fluarix Quadrivalent Unknown 01/25/2021 Administered [facility]oval[facility] Influenza High Dose Unknown 03/18/2021 Administered Florencio rosario's I called the patient and she is aware that she had one -. Flu Vaccine Unknown 04/07/2013 Refused Fluarix Quadrivalent Unknown 01/13/2021 Refused Social History Tobacco Use: Social History Observation Description Date Details (start date - stop date) Never Smoker NA - NA Tobacco Use/Smoking Question Answer Notes Patient is a nonsmoker Additional Findings: Tobacco Non-User Cu rrent non-smoker, currently using no form of tobacco Alcohol Screen Question Answer Notes Did you have a drink containing alcohol in the p ast year? No Points 0 Interpretation Negative Problems Problem Type SNOMED Code ICD Code Onset Dates Problem Status W/U Status Risk Notes Problem 13073245 Age-related osteoporosis without current pathological fracture (M81.0) Active confirmed Problem 057678721 Thyroid nodule (E04.1) Active confirmed Problem Vitamin D deficiency (56089191) Vitamin D deficiency (E55.9) Active confirmed Problem 339876653 Dupuytren contracture (M72.0) Active confirmed Problem 320716531 Gastroesophageal reflux disease without esophagitis (K21.9) Active confirmed Problem 81913862 Essential hypertension (I10) Active confirmed Problem 075969453 Abnormal mammogr am (R92.8) Active confirmed Problem Occlusion and stenosis of multiple and bilateral cerebral arteries (879869619) Bilateral carotid artery stenosis (I65.23) Active confirmed Vital Signs Blood pressure diastolic 66 mm Hg 05/19/2024 bobbi ght is dwn 3 pounds since 03-13-24 Height 63 in 05/19/2024 weight is dwn 3 pounds since 03-13-24 Blood pressure systolic 152 mm Hg 05/19/2024 weig ht is dwn 3 pounds since 03-13-24 Weight 119 lbs 05/19/2024 weight is dwn 3 pounds since 03-13-24 BMI 21.08 kg/m2 05/19/2024 weight is dwn 3 pounds since 03-13-24 Encounters Encounter Location Date Provider Diagnosis Dat Portillo MD [address] [place] [address] Drive [address] [place] [address] [phone] 09/24/2023 Dat Portillo Age-related osteoporosis without current pathological fracture M81.0 ; Essential hypertension I10 and Gastroesophageal reflux disease without esophagitis K21.9 Dat Portillo MD [address] [place] [address] Drive [address] [place] [address] [phone] 01/28/2024 Dat Portillo Eye exam abnormal H5 7.[address] [place] [address] [phone] 03/13/2024 Dat Portillo Essential hypertensi on I10 ; Bilateral carotid artery stenosis I65.23 ; Vitamin D deficiency E55.9 ; Age-related osteoporosis without current pathological fracture M81.0 and Depression screening Z13.31 Dat Portillo MD [address] [place] [address] Drive [address] [place] [address] [phone] 05/19/2024 Dat Portillo Essential hypertensi on I10 and Shortness of breath R06.02 Dat Portillo MD [address] [place] [address] Drive [address] [place] [address] [phone] 06/26/2023 Dat Portillo Assessments Encounter Date Diagnosis (ICD Code) Assessment Notes Treatment Notes Treatment Clinical Notes Section Notes 09/24/2023 Age-related osteoporosis without current pathological fracture (ICD-10 - M81.0) pending screening, THE ORDER HAS BEEN FAXED TO [facility] 09/24/2023 Essential hypertension (ICD-10 - I10) doing well. taking bp at home and is good, will continue current regiment 01/28/2024 Eye exam abnormal (ICD-10 - H57.9) need results from visit from dr zaman. he apparently saw something and told her to have pcp check carotids/ THE ORDER WAS FAXED TO [facility] PER PATIENT REQUEST. DR HAGER OFFICE CLOSED ON SUNDAY, WILL CALL TOMORROW 03/13/2024 Essential hypertension (ICD-10 - I10) running a bit high , patient verbalized understanding of 03/13/2024 Bilateral carotid artery stenosis (ICD-10 - I65.23) followed by dr leonard 05/19/2024 Essential hypertension (ICD-10 - I10) has bun elevation since being on the lisinopril with hctz, patient verblized understytanding of newmedication and directions for use 05/19/2024 Shortness of breath (ICD-10 - R06.02) refer to cardiology 09/24/2023 Gastroesophageal reflux disease without esophagitis (ICD-10 - K21.9) stable , will continue current regiment 03/13/2024 Vitamin D deficiency (ICD-10 - E55.9) 03/13/2024 Age-related osteoporosis without current pathological fracture (ICD-10 - M81.0) stable, will continue current regiment 03/13/2024 Depression screening (ICD-10 - Z13.31) negative screen Plan Of Treatment Pending Test Test Name Order Date Electrocardiogram (EKG) 11/22/2017 Electrocardiogram (EKG) 12/05/2018 Electrocardiogram (EKG) 09/22/2016 BONE DENSITY DEXA 09/24/2023 BONE DENSITY DEXA 10/07/2012 US CAROTID BILATERAL DOPPLER 01/28/2024 Next Appt Details Provider Name:Dat zee, 03/10/2025 08:00:00 AM, [address], [address], [place], [place], [phone], Provider Name:Dat zee, 03/17/2025 02:30:00 PM, [address], [address], [place], [place], [phone], Insurance Providers Payer Name Payer Address Payer Phone Subscriber Number Group Number Insured Name Patient Relationship to Insured Coverage Start Date Coverage End Date [employer] [address] [place] [address] [id number] Bee Holt Self - patient is the insured [address] [place] [address] [id number] Bee Holt Self - patient is the insured [facility] [employer] [address] [place] [address] [id number] Linn Bee Self - patient is the insured Medical (General) History Medical History History ICD Code colonoscopy 10/21/2008 negativ e - repeat [address] Divya Lyles: 04/12/21 Repeat 1 yrs: 09/04/22 Colonoscopy- pending path pap smear - 08/28/2012; 09/2013 hematuria from kidney stones colonoscopy 09/03 repeat in 2 years
--- OUTSIDE RECORDS SUMMARY | 2024-06-17 10:42 | XMS_ITS ---
Author Organization Dat Portillo MD Address [address] [place] [phone] Care Team Providers Care Transitional Nurse Name Role Phone Dat Portillo Primary Care Provider Results Component Value Reference Range Notes Blood Urea Nitrogen Reviewed date:05/12/2024 01:40:48 PM Interpretation: Performing Lab:[facility], [address] [place] [id number] Notes/Report: Blood Urea Nitrogen 27 9-16 mg/dL Creatinine Reviewed date:05/12/2024 01:40:36 PM Interpretation: Performing Lab:[facility], [address] [place] [phone] Notes/Report: Creatinine 0.80 0.5-1.4 mg/dL Estimated Glomerular Filt Rate > 60 Chronic Kidney Disease: Estimated GFR < 60 mL/min/1.73m2 Severe Kidney Disease: Estimated GFR < 15 mL/min/1.73m2 REASON FOR VISIT bun, creatinine Encounters Encounter Location Date Provider Diagnosis Dat Portillo MD [address] [place] [address] [place] [phone] 05/12/2024 Dat Portillo Essential hypertension I10 and Bilateral carotid artery stenosis I65.23 Assessments Encounter Date Diagnosis (ICD Code) Assessment Notes Treatment Notes Treatment Clinical Notes Section Notes 05/12/2024 Essential hypertension (ICD-10 - I10) 05/12/2024 Bilateral carotid artery stenosis (ICD-10 - I65.23) Plan Of Treatment Next Appt Details Provider Name:Dat zee, 03/10/2025 08:00:00 AM, [address] [place] [address], [address], [phone], Provider Name:Dat zee, 03/17/2025 02:30:00 PM, [address] [place] [address], [place] [address], [place], [place], [phone], Progress Notes * ESTEVESJuly PDOB:[birth year] (73 yo F)Acc No.[id number]:05/12/2024 Progress Note Patient:?JONATHON Bee P Provider:?Dat Portillo MD :1950???Age:73 Y???Sex:Female D ate:05/12/2024 Address:[address] [place], [place] [phone] Subjective: * Chief Complaints: * ???1. Bun, creatinine. * Medical History:? Objective: * Vitals:? Assessment: * Assessment: 1.?Essential hypertension - I10 (Primary)???2.?Bilateral carotid artery stenosis - I65.23??? Plan: * Treatment: ?LAB: Creatinine (Collection Date & Time - 05/12/2024 10:10 AM)* Catherine Louis 2024 01:56:37 PM EDT > PATIENT COMING 05/12/24 2.?Bilateral carotid artery stenosis?LAB: Blood Urea Nitrogen (Collection Date & Time - 05/12/2024 10:10 AM)* Catherine Louis 2024 01:56:36 PM EDT > PATIENT COMING 05/12/24 ?LAB: Creatinine (Collection Date & Time - 05/12/2024 10:10 AM)* Catherine Louis 2024 01:56:37 PM EDT > PATIENT COMING Sun05/12/24 * * The named appointment provid er may or may not be the originator of this progress note, and it is not deemed complete until electronically signed by the appointment provider. Sign off status: Pending * Provider:?Dat Portillo MD Date:?0 05/12/2024 Generated for Herman hdz/Ilana/Chrissieitting on:?06/17/2024 10:42 AM EDT
--- OUTSIDE RECORDS SUMMARY | 2024-06-17 10:42 | XMS_ITS ---
Author Organization Dat Portilol MD Address [address] [place] [phone] Care Team Providers Care Nicu Rn Name Role Phone Lindsey Dat Primary Care Provider [phone] Allergies No Known Allergies Reason For Referral Reason Shortness of breath Diagnosis 1 Shortness of breath (R06.02) Referral Organization Dat Portillo MD Referring Provider First Name Dat Referring Provider Last Name Lindsey Referring Provider Speciality Internal M edicine Referred Provider Alen Loyd Referred Provider Specialty Cardiovascul ar Disease General Notes Jacy Pena 0 05/23/2024 01:20:47 PM >info faxed Referral Priority Routine REASON FOR VISIT 3 MO F/U, c/o trouble sleeping using Melatonin Medications Medication SIG (Take, Route, Frequency, Duration) [...] with meals Orally Twice a day Active Vital Signs Blood pressure systolic 152 mm Hg 05/20/19 25 Blood pressure diastolic 66 mm Hg 025 Height 63 in 05/19/2024 Weight 119 lbs 05/19/2024 BMI 21.08 kg/m2 05/19/2024 weight is dwn 3 pounds since 03-13-24 Encounters Encounter Location Date Provider Diagnosis Dat Portillo MD [address] [place] [address] [place] [phone] 05/19/2024 Dat Portillo Essential hypertension I10 and Shortness of breath R06.02 Assessments Encounter Date Diagnosis (ICD Code) Assessment Notes Treatment Notes Treatment Clinical Notes Section Notes 05/19/2024 Essential hypertension (ICD-10 - I10) has bun elevation since being on the lisinopril with hctz, patient verblized understytanding of newmedication and directions for use 05/19/2024 Shortness of breath (ICD-10 - R06.02) refer to cardiology Plan Of Treatment Medication Medication Name Sig Start Date Stop Date Notes Lisinopril-hydroCHLOROthiazi de 10-12.5 MG 1 tablet Orally Once a day 03/13/2024 Valsartan 80 MG 1 tablet Orally Once a day for 30 days 05/19/2024 Treatment Notes Assessment Notes Essential hypertension has bun elevation since being on the lisinopril with hctz, patient verblized understytanding of newmedication and directions for use Shortness of breath refer to cardiology Pending Test Test Name Order Date Blood Urea Nitrogen 05/19/2024 Creatinine 05/19/2024 Referrals Referral Date Details 05/19/2024 05/19/2024, Shortnes s of breath, Alen Loyd Next Appt Details Provider Name:Dat Gonzáles ier, 03/10/2025 08:00:00 AM, [address] [facility], [address], [place], [place], [phone], Provider Name:Dat Gonzáles ier, 03/17/2025 02:30:00 PM, [address] [facility], [address], [place], [place], [phone], Progress Notes * ESTEVES July PDOB:[birth year] (73 yo F)Acc No.[id number]:05/19/2024 Progress Notes Patient:?JONATHON July P Provider:?Dat Portillo MD :1950???Age:73 Y???Sex:Female D ate:05/19/2024 Address:[address] [place], [place] [id number] Subjective: * Chief Complaints: * ???3 MO F/Uc/o trouble sleep ing using Melatonin * HPI: ???Symptom(s):?patient is a 73 yo female here for 3 month follow up visit/ not walking any longer/ feels overwhelmed. gets short of breath when she is anxious. * ROS:?General/Constitutional:?Denies?Chills.?Denies?Fatigue.?Denies?Fever.?Denies?Headache.?ENT:?Denies?Sore throat.?Respiratory:?Denies?Cough.?Denies?Shortness of breath at rest.?Denies?Shortness of breath with exertion.?Gastrointestinal:?Denies?Diarrhea.?Denies?Nausea.? * Medical History:? * Surgical History:? * Hospitalization/Major Diagno stic Procedure:? * Medications:?TakingMelatonin 5 MG Tablet 1 tablet in the evening Orally Once a day Alendronate Sodium 70 MG Tablet Effervescent 1 tablet 30 minutes before the first food, beverage or medicine of the day dissolved in 4 ounces of water Orally Calcium 600 MG Tablet 1 tablet with meals Orally Twice a day Vitamin D 50 MCG (2000 UT) Capsule 1 capsule Orally Once a day Lisinopril-hydroCHLOROthiazide 10-12.5 MG Tablet 1 tablet Orally Once a day Aspirin 81 81 MG Tablet Chewable 1 tablet Orally Once a day Taking Melatonin 5 MG Tablet 1 tablet in the evening Orally Once a day Taking Alendronate Sodium 70 MG Tablet Effervescent 1 tablet 30 minutes before the first food, beverage or medicine of the day dissolved in 4 ounces of water Orally Taking Calcium 600 MG Tablet 1 tablet with meals Orally Twice a day Taking Vitamin D 50 MCG (2000 UT) Capsule 1 capsule Orally Once a day Taking Lisinopril- hydroCHLOROthiazide 10-12.5 MG Tablet 1 tablet Orally Once a day Taking Aspirin 81 81 MG Tablet Chewable 1 tablet Orally Once a day Not-Taking/PRNIbuprofen 800 MG Tablet 1 tablet Orally Three times a day Medication List reviewed and reconciled with the patientNot-Taking/PRN Ibuprofen 800 MG Tablet 1 tablet Orally Three times a day Medication List reviewed and reconciled with the patient * Allergies:?N.K.D.A.yes[Aller gies Verified] Objective: * Vitals:?Ht: 63, Wt: 119, BMI :21.08, BP:152/66, Repeat BP:138/66, Wt-k.98. weight is dwn 3 pounds since 03-13-24. * ???Past Orders: ???Lab:Blood Urea Nitrogen ( Order Date - 05/12/2024) (Collection Date & Time - 05/12/2024 10:10 AM) ? Value Reference Range ?Blood Urea Nitrogen 27 H 9-16 - mg/dL ???Lab:Creatinine (Order Ney e - 05/12/2024) (Collection Date & Time - 05/12/2024 10:10 AM) ? Value Reference Range ?Creatinine 0.80 0.5-1.4 - mg/dL ?Estimated Glomerular Filt Rate > 60 - * Examination: ???General Examination: ?GENERAL APPEARANCE:?alert, well hydrated, in no distress.?HEAD:?normocephalic.?SKIN:?good turgor.?HEART:?no murmurs, rubs, gallops, regular rate and rhythm.?LUNGS:?good air movement, no wheezes, rales, rhonchi.? Assessment: * Assessment: 1.?Essential hypertension - I10 (Primary)???2.?Shortness of breath - R06.02??? Plan: * Treatment: 2.?Shortness of breath? Stop Lisinopril-hydroCHLOROthiazide Tablet, 10-12.5 MG, 1 tablet, Orally, Once a day.?LAB: Blood Urea Nitrogen (Ordered for 06/16/2024) ?LAB: Creatinine (Ordered for 06/16/2024) Notes: refer to cardiology? Referral To:Alen Loyd??Cardiovascular Disease ?Reason:Shortness of breath * Procedure Codes:?G2211 Compl ex e/m visit add on * * Sign off status: Completed true * Provider:?Dat Portillo MD Date:?0 05/19/2024 Generated for Hreman hdz/Ilana/eTransmitting on:?06/17/2024 10:42 AM EDT History and Physical Notes * HPI (History of Present Illness) Category Sub-Category Detail Notes Category Not es Symptom(s) patient is a 73 yo female here for 3 month follow up visit/ not walking any longer/ feels overwhelmed. gets short of breath when she is anxious. Examination Category Sub-Category Detail Notes Category Not es General Examination GENERAL APPEARANCE: alert, w ell hydrated, in no distress HEAD: normocephalic HEART: no murmurs, rubs, ga llops, regular rate and rhythm LUNGS: good air movement, n o wheezes, rales, rhonchi SKIN: good turgor Consultation Request Notes Referral Date Referring Provider Referred Provider Not es 05/19/2024 Dat Portillo, Alen Shortness o f breath
--- OUTSIDE RECORDS SUMMARY | 2024-06-17 10:42 | XMS_ITS ---
Author Organization Dat Portillo MD Address [address] [place] [phone] Care Team Providers Care Tennis Ball Cover Cementer Name Role Phone Lindsey Dat Primary Care Provider [phone] REASON FOR VISIT bun creatine Encounters Encounter Location Date Provider Diagnosis Dat Portillo MD [address] [place] [phone] 06/17/2024 Dat Portillo Shortness of breath R06.02 Assessments Encounter Date Diagnosis (ICD Code) Assessment Notes Treatment Notes Treatment Clinical Notes Section Notes 06/17/2024 Shortness of breath (ICD-10 - R06.02) order faxed to [phone] kbM 06-17-24 Plan Of Treatment Treatment Notes Assessment Notes Shortness of breath order faxed to [phone] RIM 5-6-25 Pending Test Test Name Order Date Blood Urea Nitrogen 06/17/2024 Creatinine 06/17/2024 Next Appt Details Provider Name:Dat Gonzáles ier, 03/10/2025 08:00:00 AM, [address] [place] [address], [address], [place], [place], [phone], Provider Name:Dat Gonzáles ier, 03/17/2025 02:30:00 PM, [address] [place] [address], [address], [place], [place], [phone], Progress Notes * JONATHONJuly PDOB:[birth year] (73 yo F)Acc No.[id number]:06/17/2024 Progress Note Patient:?JONATHON Bee P Provider:?Dat Portillo MD :1950???Age:73 Y???Sex:Female D ate:06/17/2024 Address:[address] [place], [place] [phone] Subjective: * Chief Complaints: * ???1. Bun creatine. * Medical History:? Objective: * Vitals:? Assessment: * Assessment: 1.?Shortness of breath - R06 .02??? Plan: * Treatment: * * The named appointment provid er may or may not be the originator of this progress note, and it is not deemed complete until electronically signed by the appointment provider. Sign off status: Pending * Provider:?Dat Portillo MD Date:?0 06/17/2024 Generated for Herman hdz/Ilana/eTransmitting on:?06/17/2024 10:41 AM EDT
[2024-06-17 11:50] LABS: Blood Urea Nitrogen 19 mg/dL (9-16); Estimated Glomerular Filt Rate > 60
== END 2024-06-17 09:41 | disposition home or self-care (01) ==
LOC: HO.WFDLDS 09:40
PROVIDERS: Visit Provider Internal Medicine
DX: R06.02 Shortness of breath (principal)
CPT/HCPCS: 36415; 82565; 84520

== ENCOUNTER 2024-09-03 11:18 | Outpatient (REF) | payer MEDICARE, OTHER, SELFPAY ==
--- OUTSIDE RECORDS SUMMARY | 2024-06-17 04:00 | XMS_ITS ---
Author Organization Dat Portillo MD Address [address] [place] [phone] Care Team Providers Care Pharmacy Salesperson Name Role Phone Dat Portillo Primary Care Provider Results Component Value Reference Range Notes Blood Urea Nitrogen Reviewed date:06/17/2024 11:54:50 AM Interpretation: Performing Lab:[facility], [address] [place] [phone] Notes/Report: Blood Urea Nitrogen 19 9-16 mg/dL Creatinine Reviewed date:06/17/2024 11:54:59 AM Interpretation: Performing Lab:[facility], [address] [place] [phone] Notes/Report: Creatinine 0.75 0.5-1.4 mg/dL Estimated Glomerular Filt Rate > 60 Chronic Kidney Disease: Estimated GFR < 60 mL/min/1.73m2 Severe Kidney Disease: Estimated GFR < 15 mL/min/1.73m2 REASON FOR VISIT bun creatine Encounters Encounter Location Date Provider Diagnosis Dat Portillo MD [address] [place] [phone] 06/17/2024 Dat Portillo Shortness of breath R06.02 Assessments Encounter Date Diagnosis (ICD Code) Assessment Notes Treatment Notes Treatment Clinical Notes Section Notes 06/17/2024 Shortness of breath (ICD-10 - R06.02) order faxed to [phone] 06-17-24 Plan Of Treatment Treatment Notes Assessment Notes Shortness of breath order faxed to [phone] 06-17-24 Next Appt Details Provider Name:Dat zee, 03/10/2025 08:00:00 AM, [address] [place] [address], [phone], Provider Name:Dat zee, 03/17/2025 02:30:00 PM, [address] [place] [address], [place], [place], [phone], Progress Notes * July PDOB:[birth year] (74 yo F)Acc No.[id number]:06/17/2024 Progress Note Patient: Beronica ALBA July P Provider: Vito Portillo MD :1950 A ge:73 Y S ex:Female Date:06/17/2024 Address:[address] [place], [place] [phone] Subjective: * Chief Complaints: * 1 . [...] 06/17/2024 Generated for Herman hdz/Ilana/Chrissieitting on: 0 09/03/2024 12:19 PM EDT
--- NOTE | ~2024-09-03 | US_ITS ---
EXAMINATION: US EXTRACRANIAL CAROTID DUPLEX, BILATERAL CLINICAL INFORMATION: Occlusion/stenosis, CCA. COMPARISON: February 11, 2024. TECHNIQUE: Real-time ultrasound and Doppler techniques (integrating B-mode 2-D vascular images, Doppler spectral analysis and color-flow Doppler imaging) were utilized to interrogate the extracranial carotid arteries, the vertebral arteries and proximal subclavian arteries bilaterally. The degree of stenosis is determined by criteria similar to NASCET. FINDINGS: Right Side: 1. There is small atherosclerotic plaque seen in the bifurcation/proximal ICA region. 2. The common carotid artery PSV proximally is 75 cm/s and distally 90 cm/s. 3. The proximal internal carotid artery velocities are 75 cm/s systolic and 19 cm/s diastolic. 4. The proximal external carotid artery PSV is 148 cm/s. 5. The vertebral artery shows antegrade flow. 6. The subclavian artery waveforms are triphasic. ICA/CCA ratio: 0.83. Left Side: 1. There is small atherosclerotic plaque seen in the bifurcation/proximal ICA region. 2. The common carotid artery PSV proximally is 103 cm/s and distally 87 cm/s. 3. The proximal internal carotid artery velocities are 62 cm/s systolic and 16 cm/s diastolic. 4. The proximal external carotid artery PSV is 104 cm/s. 5. The vertebral artery shows antegrade flow. 6. The subclavian artery waveforms are triphasic.. ICA/ CCA ratio: 0.60 US/US carotid duplex BI IMPRESSION: 1. RIGHT: 0-49% stenosis by ultrasound criteria. 2. LEFT: 0-49% stenosis by ultrasound criteria. 3. There is no change in the category severity of disease when compared to the previous study dated February 11, 2024.. Electronically signed by: Sonu Giles MD 09/03/2024 12:11 PM EDT
--- OUTSIDE RECORDS SUMMARY | 2024-09-03 12:19 | XMS_ITS ---
Author Name [facility] Organization Unknown Care Team Organization Name Specialty Phone Email Start Date End [facility]
--- OUTSIDE RECORDS SUMMARY | 2024-09-03 12:19 | XMS_ITS | Clinical Summary ---
Author Organization [facility] Address [address] [place] [address] Phone Care Team Providers Care Auto Adjudication Specialist Name Role Phone Dat Portillo MD Primary Care Provider Dat Portillo MD Unavailable [phone] Allergies No known active allergies Medications Medication-Free Text Take 2 tablets by mouth daily. calcitrate petites Active alendronate (FOSAMAX) 70 MG tabletIndications :Age-related osteoporosis without current pathological fracture Take 1 tablet (70 mg total) by mouth every 7 days. Take in the morning with a full glass of water, on an empty stomach, and do not take anything else by mouth or lie down for the next 30 min. 12 tablet 3 4 Active Active Problems Problem Noted Date Diagnosed Date Menopausal vasomotor syndrome 08/03/2023 Assessment & Plan (08/03/2023 2:28 PM EDT): Counseled regarding treatments including conservative behavioral modifications, nonhormonal medications (ie SSRI, SNRI), and hormonal medications. We reviewed risks and benefits of nonhormonal versus hormonal medications, including increased effectiveness of hormonal treatment in relieving symptoms and protective effect against fractures. We also reviewed risks of hormonal treatment including breast cancer, stroke, and DVT/PE which are more pronounced after age 60. After thorough discussion, she elects to continue behavioral modifications. Genitourinary syndrome of menopause 08/03/2023 Assessment & Plan (08/03/2023 2:29 PM EDT): Patient not currently sexually active Significant vaginal atrophy noted on exam Patient declines vaginal estrogen at this time Breast pain, right 08/03/2023 Assessment & Plan (08/03/2023 2:33 PM EDT): Patient has long-standing intermittent right breast tenderness Patient has dense breasts and has annual mammogram screening with follow up US as needed Patient states she has no breast pain at this time and is scheduled for her next mammogram at [facility] in September 2023 Warning signs/symptoms, return precautions given Osteoporosis 07/18/2022 Assessment & Plan (01/03/2024 4:52 PM EST): 73 y.o. woman with osteoporosis on bone density. No personal or family history of fracture. She has lost height & does have kyphosis. She has a remote hx of kidney stones. Labs done in 2020 showed no evidence of secondary causes. She is getting a good amount of calcium via diet/supplement. She walks regularly. She is not at high risk for falls. She does not have GERD. She sees dentist regularly, has dentures up top, recent extractions on the bottom with a partial plate & no need for further dental work at this time. Reviewed normal bone physiology across the lifespan. Reviewed role of adequate calcium & vitamin D, weight-bearing exercise, avoiding falls and pharmacologic rx with risks/benefits including ONJ & AFF. Discussed concept of a drug holiday after a period of time to help limit the risks of these. Advised her to refer to UpToDate patient information @ calcium & vitamin D & prevention and treatment of osteoporosis, beyond the basics for additional information. She is a candidate for pharmacologic rx given her bone density in the osteoporotic range & is interested taking medication. Discussed appropriate administration of bisphosphonates. To have labs @ upcoming visit with PCP. To call with any issues tolerating the medication. Resolved Problems Problem Noted Date Diagnosed Date Resolved Date Encounter for gynecological examination without abnormal finding 07/18/2022 08/03/2023 Immunizations No known immunizations Social History Tobacco Use Types Packs/Day Years Used Date Smoking Tobacco: Never Smokeless Tobacco: Never Tobacco Cessation:Counseling Given: Not Answered Alcohol Use Standard Drinks/Week Comments Not Currently 0 (1 standard drink = 0.6 oz pur e alcohol) Education Answer Date Recorded Are you interested in more education? Not on siobhan e 06/10/2022 Are you concerned about learning? Not on file 06/10/2022 No 06/10/2022 No 06/10/2022 Digital Access Answer Date Recorded No 07/09/2022 No 07/09/2022 Reliable internet access at home? Not on file 07/09/2022 Device with a working camera? Not on file Comments No Sex and Gender Information Value Date Recorded Sex Assigned at Not on file Legal Sex Female 9:56 AM EDT Gender Identity Not on file Sexual Orientation Not on file Last Filed Vital Signs Vital Sign Reading Time Taken Comments Blood Pressure 140/68 01/03/2024 12:55 PM EST Pulse 78 01/03/2024 12:55 PM EST Temperature 37 C (98.6 F) 12/07/2021 11:17 AM EDT Respiratory Rate 16 12/07/2021 11:1 7 AM EDT Oxygen Saturation 98% 01/03/2024 12: 55 PM EST Inhaled Oxygen Concentration - - Weight 52.5 kg (115 lb 12.8 oz) 024 12:55 PM EST Height 156.2 cm (5' 1.5 ) 01/03/2024 12 :55 PM EST Body Mass Index 21.53 01/03/2024 12:55 PM EST Plan of Treatment Upcoming Encounters Date Type Department Care Team (Late st Contact Info) Description 01/01/2025 2:00 PM EST Office Visit [facility] [address] [place] [address] Mari Quijano MD [address] [place] [id number] [email or web address] Health Maintenance Due Date Last Done Comments Adult Td,Tdap Booster 1950 LIPID PANEL 1950 DEPRESSION SCREENING 1963 HEPATITIS C SCREENING 07/13/1969 MAMMOGRAM 1991 COLOGUARD 07/13/1996 COLONOSCOPY 07/13/1996 COLORECTAL CANCER SCREENING 07/13/1996 FIT TEST 07/13/1996 FOBT 07/13/1996 SIGMOIDOSCOPY 07/13/1996 VIRTUAL COLONOSCOPY 07/13/1996 PNEUMOCOCCAL VACCINES (50+ years) (1 of 1 - PCV) 07/13/2001 ZOSTER VACCINES (1 of 2) 07/13/2001 COVID-19 VACCINE (4 - 2023-2 5 season) 2023 01/29/2021, 05/19/2020, 04/28/2020 RSV VACCINE (1 - 1-dose 75+ series) 07/13/2026 OSTEOPOROSIS SCREENING INITI AL (ONE-TIME) Completed 10/25/2023, 12/31/2020, 10/10/2018 SMOKING STATUS SCREENING (On ce After 26 Yrs) Completed 01/03/2024 HEPATITIS A VACCINES Aged Out No long er eligible based on patient's age to complete this topic HIB VACCINES Aged Out No longer eligi ble based on patient's age to complete this topic MENINGOCOCCAL VACCINES (ACWY) Aged Out No longer eligible based on patient's age to complete this topic MENINGOCOCCAL VACCINES (B) Aged Out N o longer eligible based on patient's age to complete this topic Medical Devices Not on file Procedures Procedure Name Priority Date/Time Associated Diagnosis Comments HM DEXA SCAN Routine 10/25/2023 11:02 AM EDT from Last 3 Months or Most Recently Relevant to Health Maintenance Results * HM DEXA SCAN (10/25/2023 11:02 AM EDT) Historical Provider HEALTH MAINTENANCE Final Result from Last 3 Months or Most Recently Relevant to Health Maintenance Insurance MEDICARE PART A & B [facility] [address] MEDICARE PART A & B [facility] [address] MEDICARE PART A & B [facility] [address] MEDICARE PART A & B [facility] [address] MEDICARE PART A & B [facility] [address] MEDICARE PART A & B [facility] MEDICARE PART A & B [facility] [address] MEDICARE PART A & B [facility] [address] MEDICARE PART A & B [facility] [address] MEDICARE PART A & B [facility] [address] MEDICARE PART A & B [facility] MEDICARE PART A & B [facility] MEDICARE PART A & B Member Subscriber Plan / Payer ( fective 2016-Present) Name:Bee Esteves Member ID:[id number] Relation to Subscriber:Self Name:Bee Esteves Subscriber ID:[id number] Payer ID:[id number] Group ID:Not on file Type:Medicare Address: [employer] [address] [place] [address] MEDICARE PART A & B Member Subscriber Plan / Payer ( fective 2016-Present) Name:Bee Esteves Member ID:[id number] Relation to Subscriber:Self Name:Bee Esteves Subscriber ID:[id number] Payer ID:[id number] Group ID:Not on file Type:Medicare Address: [employer] [address] [place] [address] MEDICARE PART A & B [facility] [address] Care Teams Auto Adjudication Specialist Relationship Specialty Start Date End Date Dat Portillo MD [address] [place] [address] [place] [id number] PCP - General Internal Medicine 12/07/21 Dat Portillo MD [address] [place] [address] [place] [id number] Internal Medicine 12/07/21 Additional Source Comments The information contained in this document represents components of the legal health record. It is not the complete legal health record.[facility]
== END 2024-09-03 11:19 | disposition home or self-care (01) ==
LOC: HO.US 11:18
PROVIDERS: PCP Internal Medicine; Visit Provider Surgery Vascular Surgery
DX: I65.23 Occlusion and stenosis of bilateral carotid arteries (principal)
CPT/HCPCS: 93880

== ENCOUNTER → 2024-09-03 11:19 | Outpatient (BNV) | payer MEDICARE, OTHER, SELFPAY | PROVIDERS: PCP Internal Medicine; Visit Provider Radiology Diagnostic Radiology | DX: I65.23 Occlusion and stenosis of bilateral carotid arteries (principal) | CPT/HCPCS: 93880 ==

== ENCOUNTER 2024-09-09 10:53 | Outpatient (AMB) | payer MEDICARE, OTHER, SELFPAY ==
--- OUTSIDE RECORDS SUMMARY | 2024-06-17 04:00 | XMS_ITS ---
Author Organization Dat Portillo MD Address [address] [place] [phone] Care Team Providers Care Production Counter Name Role Phone Dat Portillo Primary Care Provider [phone] Results Component Value Reference Range Notes Blood Urea Nitrogen Reviewed date:06/17/2024 11:54:50 AM Interpretation: Performing Lab:[facility], [address] [place] [phone] Notes/Report: Blood Urea Nitrogen 19 9-16 mg/dL Creatinine Reviewed date:06/17/2024 11:54:59 AM Interpretation: Performing Lab:[facility], [address] [place] [phone] Notes/Report: Creatinine 0.75 0.5-1.4 mg/dL Estimated Glomerular Filt Rate > 60 Chronic Kidney Disease: Estimated GFR < 60 mL/min/1.73m2 Severe Kidney Disease: Estimated GFR < 15 mL/min/1.73m2 REASON FOR VISIT bun creatine Encounters Encounter Location Date Provider Diagnosis Dat Portillo MD [address] [place] [phone] 06/17/2024 Dat Portillo Shortness of breath R06.02 Assessments Encounter Date Diagnosis (ICD Code) Assessment Notes Treatment Notes Treatment Clinical Notes Section Notes 06/17/2024 Shortness of breath (ICD-10 - R06.02) order faxed to [phone] 06-17-24 Plan Of Treatment Treatment Notes Assessment Notes Shortness of breath order faxed to [phone] XQ 06-17-24 Next Appt Details Provider Name:Dat zee, 03/10/2025 08:00:00 AM, [address] [place] [address], [phone], Provider Name:Dat zee, 03/17/2025 02:30:00 PM, [address] [place] [address], [place], [place], [phone], Progress Notes * July PDOB:[birth year] (74 yo F)Acc No.[id number]:06/17/2024 Progress Note Patient: Beronica ALBA July P Provider: Vito Portillo MD :1950 A ge:73 Y S ex:Female Date:06/17/2024 Address:[address] [place], [place] [phone] Subjective: * Chief Complaints: * 1 . Bun creatine. * Medical History: Objective: * Vitals: Assessment: * Assessment: 1. S hortness of breath - R06.02 Plan: * Treatment: * * The named appointment provid er may or may not be the originator of this progress note, and it is not deemed complete until electronically signed by the appointment provider. Sign off status: Pending * Provider: Vito Portillo MD Date: 0 06/17/2024 Generated for Herman hdz/Ilana/Chrissieitting on: 0 09/09/2024 12:04 PM EDT
--- NOTE | 2024-09-09 10:54 | A.OFFVIS_ITS ---
Vital Signs 09/09/24 10:56 Height 5 ft 4 in Weight 120 lb BMI 20.6 Intake Visit Reasons: 6m follow up s/p Carotid US 09/03/24 Intake Note: 6 mo follow up carotid US 09/03/24, no complaints Accompanied by: Self / Same As Patient Allergies No Known Allergies Allergy (Verified 09/09/24 10:58) HPI HPI 6m follow up s/p Carotid US 09/03/24: Details: The patient is a 74-year-old female presenting with follow-up regarding carotid artery disease. She has undergone routine surveillance as requested by her senior nuclear medicine technologist due to concerns about hypertensive retinopathy. The workup began after her senior nuclear medicine technologist noticed something concerning during an eye examination. Ultrasound evaluations have been performed, all returning normal results, indicating no significant carotid artery disease. A previous ultrasound in [facility] showed a slightly elevated reading on the left side, which may have been artifactually high. The patient has a history of essential hypertension, for which she is currently on medication. She has never smoked and maintains a healthy lifestyle, including walking four miles daily for the past 20 years. The patient also reports having cataracts in both eyes, which affects her vision and requires her to wear glasses for reading. She now presents for routine surveillance regarding her carotids. PFSH Medical History Goiter Vitamin D deficiency Osteoporosis Surgical History Hx of colonoscopy Hx of section Family History Father Stomach cancer Mother Breast cancer Social History Household Members Other:: Alcohol intake: never Patient Tobacco Use Status: Never used Tobacco Review of Systems Const All systems reviewed & are unremarkable except as noted in HPI and below Reports no additional complaints ENT Reports Normal hearing present Card Denies chest pain, Denies chest pain at rest, Denies chest pain with activity and Denies pedal edema Resp Denies cough GI Denies abdominal pain Musc Denies abnormal gait, Denies muscle cramps and Denies radiating pain into limb Skin/Breast Denies skin ulcer and Denies wounds Neuro Reports Normal hearing present and Denies abnormal gait Psych Reports no additional complaints Physical Exam Vital Signs: BMI result Body Mass Index 20.6 Const General: cooperative, healthy appearing and comfortable Orientation/consciousness: oriented to person, oriented to place and oriented to time HEENT Head: Yes normal to inspection Neck Neck: Yes normal visual inspection Carotids: no bruits Chest Chest palpation & inspection: normal inspection of the chest Resp Effort & Inspection: normal respiratory effort and able to speak in complete sentences Auscultation: clear to auscultation bilaterally, no crackles, no rales, no rhonchi and no wheezes Cardio Rate: regular rate Rhythm: regular rhythm Heart sounds: S1 normal heart sound present and S2 normal heart sound present Bruits: no carotid bruits Peripheral pulses: Peripheral pulses 2+ throughout GI Inspection: Yes normal to inspection Skin Wounds: no wounds Hair: normal Neuro General: oriented to person, oriented to place and oriented to time Cranial nerves: Yes CN's II-XII intact bilaterally and Yes Normal hearing present Cognition (Neuro): normal cognition Motor exam (neuro): 5/5 motor strength present throughout Extrem Other: venous exam: No significant superficial varicosities or spider telangiectasias, minimal edema General: No clubbing, No cyanosis and No edema Psych Appearance: grossly normal Mental Status: mental status grossly normal Speech and movement: Normal speech and movement present Results Reviewed Results Reviewed: Ultrasound testing dated 09/03/2024 demonstrates bilateral 0-49% stenosis bilaterally. Assessment & Plan Assessment & Plan (1) Bilateral carotid artery stenosis: Code(s): I65.23 - Occlusion and stenosis of bilateral carotid arteries Category: Medical Plan: In short patient is negative for any significant carotid disease. In addition she leads quite a healthy lifestyle and does not have any the risk factors for arterial disease. I did discuss this with her in detail. She will follow up with us on an as-needed basis. Thank you for allowing us to assist in her care. If there are any questions or concerns please do not hesitate to contact us. Coding Level of Care Code Est Pt Level 4 (59570) Diagnoses Bilateral carotid artery stenosis I65.23
[2024-09-09 10:56] VITALS: BMI 20.6
--- OUTSIDE RECORDS SUMMARY | 2024-09-09 12:05 | XMS_ITS | Clinical Summary ---
Author Organization [facility] Address [address] [place] [address] Phone Care Team Providers Care Outcomes Analyst Name Role Phone Dat Portillo MD Primary Care Provider Dat Portillo MD Unavailable [phone] Allergies No known active allergies Medications Medication-Free [...] is scheduled for her next mammogram at [place] in September 2023 Warning signs/symptoms, return precautions [...] 2:00 PM EST Office Visit [facility] [address] [place] [id number] Mari Quijano MD [address] [place] [id number] [email or web address] Health Maintenance Due Date Last [...] Maintenance Insurance MEDICARE PART A & B [facility] [place] [address] MEDICARE PART A & B [facility] [place] [address] MEDICARE PART A & B [facility] [place] [address] MEDICARE PART A & B [facility] [place] [address] MEDICARE PART A & B [facility] [place] [address] MEDICARE PART A & B [facility] MEDICARE PART A & B [facility] [place] [address] MEDICARE PART A & B [facility] [place] [address] MEDICARE PART A & B [facility] [place] [address] MEDICARE PART A & B [facility] [place] [address] MEDICARE PART A & B [facility] MEDICARE PART A & B [facility] MEDICARE PART A & B Member Subscriber Plan / Payer ( fective 2016-Present) Name:Bee Esteves Member ID:[id number] Relation to Subscriber:Self Name:Bee Esteves Subscriber ID:[id number] Payer ID:[id number] Group ID:Not on file Type:Medicare Address: [employer] [address] [place] [address] MEDICARE PART A & B Member Subscriber Plan / Payer ( fective 2016-Present) Name:Bee Esteves Member ID:[id number] Relation to Subscriber:Self Name:Bee Esteves Subscriber ID:[id number] Payer ID:[id number] Group ID:Not on file Type:Medicare Address: [employer] [address] [place] [address] MEDICARE PART A & B [facility] [place] [address] Care Teams Outcomes Analyst Relationship Specialty Start Date End Date Dat Portillo MD [address] [place] [address] [place] [address] PCP - General Internal Medicine 12/07/21 Dat Portillo MD [address] [place] [address] [place] [address] Internal Medicine 12/07/21 Additional Source Comments The information contained in this document represents components of the legal health record. It is not the complete legal health record.[facility]
== END 2024-09-09 11:11 | disposition home or self-care (01) ==
LOC: HO.HVS 10:53
PROVIDERS: PCP Internal Medicine; Visit Provider Surgery Vascular Surgery
DX: I65.23 Occlusion and stenosis of bilateral carotid arteries (principal)
CPT/HCPCS: 99214

== ENCOUNTER → 2024-09-09 10:53 | Outpatient (BNVA) | payer MEDICARE, OTHER, SELFPAY | PROVIDERS: PCP Internal Medicine; Visit Provider Surgery Vascular Surgery | DX: I65.23 Occlusion and stenosis of bilateral carotid arteries (principal) | CPT/HCPCS: 99212 ==

== ENCOUNTER 2024-09-25 13:17 | Outpatient (REF) | payer MEDICARE, OTHER, SELFPAY ==
--- OUTSIDE RECORDS SUMMARY | 2024-09-12 05:45 | XMS_ITS ---
Author Organization Dat Portillo MD Address [address] [place] [phone] Care Team Providers Care Forepart Reducer Name Role Phone Lindsey Dat Primary Care Provider REASON FOR VISIT refill Medications Medication SIG (Take, Route, Fr equency, Duration) Notes Start Date End Date Status Valsartan 80 mg TAKE 1 TABLET BY BETZY TH ONCE DAILY for 30 days Active Encounters Encounter Location Date Provider Diagnosis Dat Portillo MD [address] [place] [phone] 09/12/2024 Dat Portillo Essential hypertension I10 Assessments Encounter Date Diagnosis (ICD Code) Assessment Notes Treatment Notes Treatment Clinical Notes Section Notes 09/12/2024 Essential hypertension (ICD-10 - I10) Plan Of Treatment Medication Medication Name Sig Start Date Stop Date Notes Valsartan 80 mg TAKE 1 TABLET BY BETZY TH ONCE DAILY for 30 days Next Appt Details Provider Name:Dat Gonzáles ier, 03/10/2025 08:00:00 AM, [address] [facility], [address] [facility], [place], [place], [phone], Provider Name:Dat Gonzáles ier, 03/17/2025 02:30:00 PM, [address] [place] [address], [place] [address], [place], [place], [phone], Progress Notes * JONATHON July PDOB:[birth year] (74 yo F)Acc No.[id number]:09/12/2024 Patient: Beronica ALBA July P :1950 A ge:74 Y S ex:Female Address:[address] [place] [address] * Refills Refill Valsartan Tablet, 80 mg, 30, TAKE 1 TABLET BY MOUTH ONCE DAILY, 30 days, Refills=3 * true * Date: Generated for Herman hdz/Ilana/Valeriesmitting on: 0 09/25/2024 02:09 PM EDT
--- NOTE | ~2024-09-25 | MM_ITS ---
EXAMINATION: MM SCREENING DIGITAL BREAST TOMOSYNTHESIS, BILATERAL CLINICAL INFORMATION: Screening. Asymptomatic. COMPARISON: Mammography: Comparison is made with available priors TECHNIQUE: Digital breast mammography with tomosynthesis is performed in both the craniocaudal and mediolateral oblique views along with computer-aided detection (CAD). FINDINGS: There are scattered areas of fibroglandular density (ACR BI-RADS breast composition Category b). There are no significant masses, abnormal calcifications, or other abnormalities. MM/MM tomosynthesis screening BI IMPRESSION: No mammographic evidence of malignancy. ASSESSMENT: BI-RADS BI-RADS 1 - Negative RECOMMENDATION: Routine annual mammography screening. 1 year F/U This examination should not preclude the clinical evaluation of a suspicious palpable abnormality. This patient's information was entered into a reminder system with a target due date for their next mammogram. Electronically signed by: Celeste Perkins DO 09/30/2024 01:57 PM EDT
--- OUTSIDE RECORDS SUMMARY | 2024-09-25 14:09 | XMS_ITS | Clinical Summary ---
Author Organization [facility] Address [address] [place] [address] Phone Care Team Providers Care Pharmacy Care Coordinator Name Role Phone Dat Portillo MD Primary Care Provider Dat Portillo MD Unavailable [phone] Allergies No known active allergies Medications Medication-Free [...] is scheduled for her next mammogram at [place] in September 2023 Warning signs/symptoms, return precautions [...] 2:00 PM EST Office Visit [facility] [address] [place] [address] Mari Quijano MD [address] [place] [phone] [email or web address] Health Maintenance Due Date Last Done Comments [...] Maintenance Insurance MEDICARE PART A & B [facility] [place] [address] MEDICARE PART A & B [facility] [address] MEDICARE PART A & B [facility] [place] [address] MEDICARE PART A & B [facility] [place] [address] MEDICARE PART A & B [facility] [place] [address] MEDICARE PART A & B [facility] MEDICARE PART A & B [facility] [place] [address] MEDICARE PART A & B [facility] [place] [address] MEDICARE PART A & B [facility] [address] MEDICARE PART A & [place] [facility] [address] MEDICARE PART A & B Member Subscriber Plan / Payer (Ef fective 2016-Present) Name:Bee Esteves Member ID:[id number] Relation to Subscriber:Self Name:eBe Esteves Subscriber ID:[id number] Payer ID:[id number] Group ID:Not on file Type:Medicare Address: [employer] [address] [place] [address] [facility] MEDICARE PART A & B Member Subscriber Plan / Payer ( fective 2016-Present) Name:Bee Esteves Member ID:[id number] Relation to Subscriber:Self Name:Bee Esteves Subscriber ID:[id number] Payer ID:[id number] Group ID:Not on file Type:Medicare Address: [employer] [address] [place] [address] [facility] MEDICARE PART A & B Member Subscriber Plan / Payer ( fective 2016-Present) Name:Bee Esteves Member ID:[id number] Relation to Subscriber:Self Name:Bee Esteves Subscriber ID:[id number] Payer ID:[id number] Group ID:Not on file Type:Medicare Address: [employer] [address] [place] [address] MEDICARE PART A & B Member Subscriber Plan / Payer ( fective 2016-Present) Name:Bee Esteves Member ID:[id number] Relation to Subscriber:Self Name:Bee Esteves Subscriber ID:[id number] Payer ID:[id number] Group ID:Not on file Type:Medicare Address: [employer] [address] [place] [address] MEDICARE PART A & B [facility] [address] Care Teams Pharmacy Care Coordinator Relationship Specialty Start Date End Date Dat Portillo MD [address] [place] [address] [place] [address] PCP - General Internal Medicine 12/07/21 Dat Portillo MD [address] [place] [address] [place] [address] Internal Medicine 12/07/21 Additional Source Comments The information contained in this document represents components of the legal health record. It is not the complete legal health record.[facility]
== END 2024-09-25 13:18 | disposition home or self-care (01) ==
LOC: HO.MAMMO 13:17
PROVIDERS: PCP Internal Medicine; Visit Provider Internal Medicine
DX: Z12.31 Encounter for screening mammogram for malignant neoplasm of breast (principal)
CPT/HCPCS: 77063; 77067

== ENCOUNTER → 2024-09-25 13:30 | Outpatient (BNV) | payer MEDICARE, OTHER, SELFPAY | PROVIDERS: PCP Internal Medicine; Visit Provider Internal Medicine | DX: Z12.31 Encounter for screening mammogram for malignant neoplasm of breast (principal) | CPT/HCPCS: 77063; 77067 ==